=== PATIENT | male | born 1935 | race Caucasian/White ===

== ENCOUNTER → 2017-01-15 | Outpatient (REF) | payer MEDICARE ==
[2017-01-15 10:55] LABS: ALBUMIN 3.7 GM/DL (3.2-5.2); ALBUMIN/GLOBULIN RATIO 1.28 (1.00-1.93); BILIRUBIN,TOTAL 0.9 MG/DL (0.2-1.0); CREATININE FOR GFR 1.63 MG/DL (0.70-1.30); GLOMERULAR FILTRATION RATE 43.2 (>35); MAGNESIUM LEVEL 2.3 MG/DL (1.8-2.4); POTASSIUM SERUM 4.5 MEQ/L (3.5-5.1); TOTAL PROTEIN 6.6 GM/DL (6.4-8.2)
== END ==
LOC: M SFHCPLAZ 08:08
PROVIDERS: ATTEND Internal Medicine
DX: N28.9 Disorder of kidney and ureter, unspecified (principal); E78.00 Pure hypercholesterolemia, unspecified; R25.2 Cramp and spasm

== ENCOUNTER 2017-05-28 09:25 | Emergency (ER) | payer MEDICARE ==
[~2017-05-28] VITALS: Ht 180.3 cm; Wt 92.4 kg
[2017-05-28] MEDS ORDERED: ASPI81TA85 PO (09:39)
[2017-05-28] MEDS ORDERED: CELE1CAP4 PO (09:39)
[2017-05-28] MEDS ORDERED: ATEN25TA PO (09:39)
[2017-05-28] MEDS ORDERED: LIPI20TA PO (09:39)
[2017-05-28] MEDS ORDERED: nitro patch (09:40)
[2017-05-28] MEDS ORDERED: NS 1,000 ML IV ONE (10:00)
[2017-05-28 10:36] LABS: BASO % 0.5 % (0.0-1.0); EOS # 0.2 K/mm3 (0.0-0.50); EOS % 2.6 % (0.0-3.0); LARGE UNSTAINED CELL # 0.2 K/mm3 (0.0-0.4); LYMPH # 1.1 K/mm3 (1.5-4.5); MEAN CORPUSCULAR HEMOGLOBIN 33.7 pg (27.0-33.0); MEAN CORPUSCULAR HGB CONC 36.2 g/dl (32.0-36.5); MEAN CORPUSCULAR VOLUME 93.3 fl (80.0-96.0); MONO # 0.5 K/mm3 (0.0-0.8); MONO % 7.1 % (0.0-5.0); NEUTROPHILS # 5.2 K/mm3 (1.8-7.7); NEUTROPHILS % 71.7 % (36.0-66.0); PLATELET COUNT, AUTOMATED 183 k/mm3 (150-450); RED CELL DISTRIBUTION WIDTH 13.3 % (11.5-14.5); WHITE BLOOD COUNT 7.2 K/mm3 (4.0-10.0)
--- NOTE | 2017-05-28 10:52 | REP ---
CT ABDOMEN AND PELVIS WITHOUT IV CONTRAST: CT abdomen and pelvis performed without oral or IV contrast, with sagittal and coronal reconstruction images also performed. Comparison made with prior CT with and without contrast 05/31/2014. Visualized lungs bases demonstrate linear fibroatelectatic change. Liver demonstrates no gross nodule. Gallbladder is grossly unremarkable. Spleen, adrenals, and pancreas are grossly unremarkable. There are bilateral renal cysts identified. The largest is on the left side and measures approximately 6 cm in diameter. No renal or ureteral calculi are seen and there is no hydroureteronephrosis. Evaluation for renal neoplasm is limited without IV contrast. There are moderate atherosclerotic calcifications of the abdominal aorta without aneurysm. There is no adenopathy. There is no free air or free fluid. No bowel thickening is seen. The appendix is normal. There is sigmoid diverticulosis without acute diverticulitis. Urinary bladder is mildly distended. Internally within the bladder is an ill-defined hyperdensity about 2.5 cm in diameter which may represent a blood clot. I cannot rule out underlying bladder polyp. There is a small right inguinal hernia containing fat. Prostate appears mildly enlarged. There are degenerative changes of the spine. IMPRESSION: Bilateral renal cysts without renal or ureteral calculus and no hydroureteronephrosis noted. Evaluation for renal neuroplasm is limited without IV contrast. Ill-defined hyperdensity in the bladder 2.5 cm in diameter may represent a blood clot. I cannot rule out underlying bladder polyps. Sigmoid diverticulosis. No adenopathy, free air, or free fluid. Signed by Jama Cardenas MD 05/28/2017 01:41 P
[2017-05-28 10:54] LABS: ALBUMIN 3.7 GM/DL (3.2-5.2); ALBUMIN/GLOBULIN RATIO 1.28 (1.00-1.93); BILIRUBIN,DIRECT 0.2 MG/DL (0.0-0.2); BILIRUBIN,TOTAL 0.7 MG/DL (0.2-1.0); CALCIUM LEVEL 8.8 MG/DL (8.8-10.2); CREATININE FOR GFR 1.68 MG/DL (0.70-1.30); GLOMERULAR FILTRATION RATE 41.6 (>35); POTASSIUM SERUM 4.7 MEQ/L (3.5-5.1); TOTAL PROTEIN 6.6 GM/DL (6.4-8.2)
[2017-05-28] MEDS ORDERED: CIPR-249 PO (12:43)
[2017-05-28 12:59] VITALS: BP 158/86
== END 2017-05-28 13:26 | disposition home or self-care (01) ==
LOC: M ED 09:25
DX: N30.91 Cystitis, unspecified with hematuria (principal); I25.10 Atherosclerotic heart disease of native coronary artery without angina pectoris; R00.0 Tachycardia, unspecified; I10 Essential (primary) hypertension; N40.0 Benign prostatic hyperplasia without lower urinary tract symptoms; E78.5 Hyperlipidemia, unspecified; N28.1 Cyst of kidney, acquired; Z79.899 Other long term (current) drug therapy; Z79.82 Long term (current) use of aspirin; Z88.8 Allergy status to other drugs, medicaments and biological substances; Z91.013 Allergy to seafood; Z91.048 Other nonmedicinal substance allergy status; Z87.442 Personal history of urinary calculi; Z96.0 Presence of urogenital implants

== ENCOUNTER → 2017-06-18 | Outpatient (REF) | payer MEDICARE ==
[~2017-06-18] MED LIST: ASPI81TA85 PO; ATEN25TA PO; CELE1CAP4 PO; CIPR-249 PO; LIPI20TA PO; nitro patch
[2017-06-18 12:24] LABS: ALBUMIN 3.5 GM/DL (3.2-5.2); ALBUMIN/GLOBULIN RATIO 1.35 (1.00-1.93); BILIRUBIN,TOTAL 0.8 MG/DL (0.2-1.0); CALCIUM LEVEL 8.5 MG/DL (8.8-10.2); CREATININE FOR GFR 1.66 MG/DL (0.70-1.30); GLOMERULAR FILTRATION RATE 42.2 (>35); MAGNESIUM LEVEL 1.9 MG/DL (1.8-2.4); POTASSIUM SERUM 4.3 MEQ/L (3.5-5.1); TOTAL PROTEIN 6.1 GM/DL (6.4-8.2)
[2017-06-18 12:29] LABS: MEAN CORPUSCULAR HEMOGLOBIN 31.9 pg (27.0-33.0); MEAN CORPUSCULAR VOLUME 96.5 fl (80.0-96.0); RED CELL DISTRIBUTION WIDTH 13.3 % (11.5-14.5); WHITE BLOOD COUNT 7.9 10^3/uL (4.0-10.0)
== END ==
LOC: M SFHCPLAZ 08:07
PROVIDERS: ATTEND Internal Medicine
DX: N28.9 Disorder of kidney and ureter, unspecified (principal); N18.3 Chronic kidney disease, stage 3 (moderate); I25.10 Atherosclerotic heart disease of native coronary artery without angina pectoris; R25.2 Cramp and spasm

== ENCOUNTER → 2018-01-21 | Outpatient (REF) | payer MEDICARE ==
[2018-01-21 12:41] LABS: AMORPHOUS SEDIMENT SMALL (NEGATIVE); APPEARANCE, URINE HAZY (CLEAR); BACTERIA, URINE AUTO NEGATIVE (NEGATIVE); BILIRUBIN, URINE AUTO NEGATIVE (NEGATIVE); BLOOD, URINE BLOOD 2+ (NEGATIVE); COLOR, URINE YELLOW (YELLOW); GLUCOSE, URINE (UA) AUTO NEGATIVE (NEGATIVE); KETONE, URINE AUTO NEGATIVE (NEGATIVE); LEUKOCYTE ESTERASE, URINE AUTO 1+ (NEGATIVE); NITRITE, URINE AUTO NEGATIVE (NEGATIVE); PROTEIN, URINE AUTO NEGATIVE (NEGATIVE); RBC, URINE AUTO 55 /HPF (0-3); SPECIFIC GRAVITY URINE AUTO 1.019 (1.002-1.035); SQUAMOUS EPITHELIAL CELL UR AU 0 /HPF (0-6); WBC, URINE AUTO 58 /HPF (0-3)
[2018-01-21 13:08] LABS: PTH INTACT 71.9 PG/ML (18.5-88.0)
[2018-01-21 13:09] LABS: ALBUMIN 3.8 GM/DL (3.2-5.2); ALBUMIN/GLOBULIN RATIO 1.36 (1.00-1.93); ALKALINE PHOSPHATASE 117 U/L (45-117); ALT/SGPT 42 U/L (12-78); ANION GAP 5 MEQ/L (8-16); AST/SGOT 24 U/L (7-37); BILIRUBIN,TOTAL 0.8 MG/DL (0.2-1.0); BLOOD UREA NITROGEN 25 MG/DL (7-18); CALCIUM LEVEL 8.5 MG/DL (8.8-10.2); CARBON DIOXIDE LEVEL 27 MEQ/L (21-32); CHLORIDE LEVEL 110 MEQ/L (98-107); CHOLESTEROL LEVEL 124 MG/DL (<200); CHOLESTEROL RISK RATIO 3.179 (<5); CREATININE FOR GFR 1.58 MG/DL (0.70-1.30); GLOMERULAR FILTRATION RATE 44.7 (>35); GLUCOSE, FASTING 101 MG/DL (70-100); HDL CHOLESTEROL 39 MG/DL (>40); LDL CHOLESTEROL 56.2 MG/DL (<100); NON-HDL-C 85 MG/DL; POTASSIUM SERUM 4.7 MEQ/L (3.5-5.1); SODIUM LEVEL 142 MEQ/L (136-145); TOTAL PROTEIN 6.6 GM/DL (6.4-8.2); TRIGLYCERIDES LEVEL 144 MG/DL (<150)
[2018-01-21 13:48] LABS: ESTIMATED AVERAGE GLUCOSE 120 MG/DL (60-110); HEMOGLOBIN A1c 5.8 %
== END ==
LOC: M SFHCPLAZ 08:07
DX: N18.3 Chronic kidney disease, stage 3 (moderate) (principal); R73.01 Impaired fasting glucose; E78.00 Pure hypercholesterolemia, unspecified; Z87.448 Personal history of other diseases of urinary system
CPT/HCPCS: 80053

== ENCOUNTER → 2018-03-31 | Outpatient (CLI) | payer MEDICARE ==
[2018-03-31 08:31] LABS: HEMATOCRIT 43.2 % (42.0-52.0); HEMOGLOBIN 14.6 g/dl (13.5-17.5); MEAN CORPUSCULAR HEMOGLOBIN 32.4 pg (27.0-33.0); MEAN CORPUSCULAR HGB CONC 33.8 g/dl (32.0-36.5); MEAN CORPUSCULAR VOLUME 95.8 fl (80.0-96.0); PLATELET COUNT, AUTOMATED 149 10^3/uL (150-450); RED BLOOD COUNT 4.51 10^6/uL (4.30-6.10); RED CELL DISTRIBUTION WIDTH 13.6 % (11.5-14.5); WHITE BLOOD COUNT 6.2 10^3/uL (4.0-10.0)
[2018-03-31 08:44] LABS: INR 1.01; PROTHROMBIN TIME 13.5 SECONDS (12.1-14.4)
[2018-03-31 08:45] LABS: PARTIAL THROMBOPLASTIN TIME 29.8 SECONDS (25.4-37.6)
[2018-03-31 08:51] LABS: ANION GAP 5 MEQ/L (8-16); BLOOD UREA NITROGEN 26 MG/DL (7-18); CALCIUM LEVEL 8.2 MG/DL (8.8-10.2); CARBON DIOXIDE LEVEL 26 MEQ/L (21-32); CHLORIDE LEVEL 110 MEQ/L (98-107); CREATININE FOR GFR 1.85 MG/DL (0.70-1.30); GLOMERULAR FILTRATION RATE 37.3 (>35); GLUCOSE, FASTING 121 MG/DL (70-100); POTASSIUM SERUM 4.3 MEQ/L (3.5-5.1); SODIUM LEVEL 141 MEQ/L (136-145)
== END ==
LOC: M LAB 07:56
DX: Z01.818 Encounter for other preprocedural examination (principal); N32.89 Other specified disorders of bladder
CPT/HCPCS: 71046

== ENCOUNTER 2018-04-17 08:10 | Day surgery (SDC) | payer MEDICARE ==
[2018-04-17] MEDS: LR 1,000 ML IV (08:45)
[2018-04-17] MEDS ORDERED: LIDOCAINE 2% INJ 100 MG/5 ML SDV (FOR ANES.) As Ordered ×2 (09:08)
[2018-04-17] MEDS ORDERED: ONDANSETRON 4MG/2ML VIAL (J2405) As Ordered ×2 (09:09)
[2018-04-17] MEDS ORDERED: MIDAZOLAM INJ 2 MG/2 ML VIAL (J2250) As Ordered (09:09)
[2018-04-17] MEDS ORDERED: PROPOFOL 200 MG/20 ML VIAL As Ordered ×2 (09:09)
[2018-04-17] MEDS ORDERED: fentaNYL 100 MCG/2 ML INJECTION (J3010) As Ordered ×2 (09:10→11:08)
[2018-04-17] MEDS ORDERED: dexameTHASONE 4 MG/ML 1ML VIAL (J1100) As Ordered (10:16)
[2018-04-17] MEDS ORDERED: SUGAMMADEX SODIUM 500 MG/5 ML VIAL (BRIDION) As Ordered (10:51)
[2018-04-17] MEDS: fentaNYL 100 MCG/2 ML INJECTION (J3010) IV ×8 (11:05→11:55)
[2018-04-17] MEDS ORDERED: PERCOCET 5MG/325MG TAB As Ordered (11:08)
[2018-04-17] MEDS: PERCOCET 5MG/325MG TAB PO ×2 (11:15→11:45)
[2018-04-17] MEDS: MEPERIDINE INJ 25 MG/ML VIAL (J2175) IV ×2 (11:25→11:30)
[2018-04-17] MEDS ORDERED: METOCLOPRAMIDE INJ 10MG/2ML VIAL (J2765) IV ×2 (11:30→14:00)
[2018-04-17] MEDS ORDERED: ONDANSETRON 4MG/2ML VIAL (J2405) IV ×2 (11:30→14:00)
[2018-04-17] MEDS ORDERED: LR 1,000 ML IV ×2 (11:30→14:00)
[2018-04-17] MEDS ORDERED: ACETAMINOPHEN TAB 650MG DOSE (2X325MG) PO (11:30)
[2018-04-17] MEDS: oxyBUTYnin 5 MG TAB PO (12:18)
[2018-04-17] MEDS ORDERED: BELLADONNA ALKALOIDS/OPIUM SUPP As Ordered (13:55)
[2018-04-17] MEDS ORDERED: PERCOCET 5MG/325MG TAB PO (14:00)
[2018-04-17] MEDS ORDERED: fentaNYL 100 MCG/2 ML INJECTION (J3010) IV (14:00)
[2018-04-17] MEDS ORDERED: MEPERIDINE INJ 25 MG/ML VIAL (J2175) IV (14:00)
[2018-04-17] MEDS: BELLADONNA ALKALOIDS/OPIUM SUPP PR (14:05)
== END 2018-04-17 14:45 | disposition home or self-care (01) ==
LOC: M SDC 08:10
DX: C67.3 Malignant neoplasm of anterior wall of bladder (principal); I10 Essential (primary) hypertension; I25.10 Atherosclerotic heart disease of native coronary artery without angina pectoris; N40.0 Benign prostatic hyperplasia without lower urinary tract symptoms; E78.00 Pure hypercholesterolemia, unspecified; Z79.82 Long term (current) use of aspirin; Z79.899 Other long term (current) drug therapy
CPT/HCPCS: 52240

== ENCOUNTER → 2018-06-02 | Outpatient (REF) | payer MEDICARE ==
[2018-06-02 10:17] LABS: HEMATOCRIT 45.3 % (42.0-52.0); HEMOGLOBIN 15.4 g/dl (13.5-17.5); MEAN CORPUSCULAR HEMOGLOBIN 32.4 pg (27.0-33.0); MEAN CORPUSCULAR VOLUME 95.2 fl (80.0-96.0); PLATELET COUNT, AUTOMATED 156 10^3/uL (150-450); RED BLOOD COUNT 4.76 10^6/uL (4.30-6.10); RED CELL DISTRIBUTION WIDTH 13.5 % (11.5-14.5); WHITE BLOOD COUNT 6.6 10^3/uL (4.0-10.0)
[2018-06-02 10:35] LABS: ALBUMIN 3.8 GM/DL (3.2-5.2); ALBUMIN/GLOBULIN RATIO 1.65 (1.00-1.93); ALKALINE PHOSPHATASE 108 U/L (45-117); ALT/SGPT 42 U/L (12-78); ANION GAP 9 MEQ/L (8-16); AST/SGOT 24 U/L (7-37); BILIRUBIN,TOTAL 0.6 MG/DL (0.2-1.0); BLOOD UREA NITROGEN 21 MG/DL (7-18); CALCIUM LEVEL 8.8 MG/DL (8.8-10.2); CARBON DIOXIDE LEVEL 25 MEQ/L (21-32); CHLORIDE LEVEL 108 MEQ/L (98-107); CREATININE FOR GFR 1.64 MG/DL (0.70-1.30); GLOMERULAR FILTRATION RATE 42.7 (>35); GLUCOSE, FASTING 86 MG/DL (70-100); POTASSIUM SERUM 4.6 MEQ/L (3.5-5.1); SODIUM LEVEL 142 MEQ/L (136-145); TOTAL PROTEIN 6.1 GM/DL (6.4-8.2)
[2018-06-02 13:29] LABS: TOTAL 25(OH) VITAMIN D 33.4 NG/ML (30.0-100.0)
== END ==
LOC: M SFHCPLAZ 08:02
DX: N18.3 Chronic kidney disease, stage 3 (moderate) (principal); E78.00 Pure hypercholesterolemia, unspecified; E55.9 Vitamin D deficiency, unspecified
CPT/HCPCS: 80053

== ENCOUNTER → 2018-06-30 | Outpatient (REF) | payer MEDICARE | LOC: M SMT 16:56 | DX: C67.9 Malignant neoplasm of bladder, unspecified (principal) | CPT/HCPCS: 88108 ==

== ENCOUNTER → 2019-01-14 | Outpatient (REF) | payer MEDICARE ==
[~2019-01-14] MED LIST changes: +FISH1000 PO; +MULT1TAB10 PO; +NATU400T PO; +VITA100067 PO
[2019-01-14 13:30] LABS: HEMATOCRIT 45.6 % (42.0-52.0); MEAN CORPUSCULAR HEMOGLOBIN 31.8 pg (27.0-33.0); MEAN CORPUSCULAR HGB CONC 32.9 g/dl (32.0-36.5); MEAN CORPUSCULAR VOLUME 96.8 fl (80.0-96.0); PLATELET COUNT, AUTOMATED 133 10^3/uL (150-450); RED BLOOD COUNT 4.71 10^6/uL (4.30-6.10); WHITE BLOOD COUNT 7.9 10^3/uL (4.0-10.0)
[2019-01-14 14:00] LABS: ALBUMIN 3.8 GM/DL (3.2-5.2); BILIRUBIN,TOTAL 0.9 MG/DL (0.2-1.0); CALCIUM LEVEL 8.7 MG/DL (8.8-10.2); CHOLESTEROL RISK RATIO 3.152 (<5); CREATININE FOR GFR 1.66 MG/DL (0.70-1.30); GLOMERULAR FILTRATION RATE 42.1 (>35); POTASSIUM SERUM 4.8 MEQ/L (3.5-5.1); TOTAL PROTEIN 6.2 GM/DL (6.4-8.2)
[2019-01-14 14:04] LABS: PTH INTACT 70.8 PG/ML (18.5-88.0)
[2019-01-14 14:42] LABS: HEMOGLOBIN A1c 5.7 %
== END ==
LOC: M SFHCPLAZ 09:59
PROVIDERS: ATTEND Internal Medicine
DX: N28.9 Disorder of kidney and ureter, unspecified (principal); C67.9 Malignant neoplasm of bladder, unspecified; N18.3 Chronic kidney disease, stage 3 (moderate); R73.01 Impaired fasting glucose; E78.00 Pure hypercholesterolemia, unspecified

== ENCOUNTER → 2019-01-19 | Outpatient (REF) | payer MEDICARE ==
[~2019-01-19] MED LIST changes: +CELE1CAP9; +FLOM0.4C39 PO; +MACR100C43 PO; +MULTCAP PO; +PYRI1TAB5 PO; +QUIN324C2 PO; +TAMS1CAP17; +VITA200028 PO
== END ==
LOC: M SMT 17:24
PROVIDERS: ATTEND Urology
DX: R30.0 Dysuria (principal)

== ENCOUNTER → 2019-02-02 | Outpatient (CLI) | payer MEDICARE ==
--- NOTE | 2019-02-02 10:58 | REP ---
Chest two views HISTORY: Bladder cancer Comparison: 03/31/2018 An increase in interstitial markings is present in the lungs consistent with chronic interstitial fibrosis. The heart is normal in size. The pulmonary vasculature is normal in appearance. The bony structure is intact. IMPRESSION: Chronic interstitial fibrosis. Electronically Signed by Nabor Lawler MD 02/02/2019 10:49 A
--- NOTE | 2019-02-03 09:36 | ECGEPIP ---
[facility] Test Date: 2019-02-02 Pat Name: LAINA PATINO Department: Room: - Gender: Male Clinical Quality Rn: SILVIA : 1935 Requested By: DAO Kincaid Order Number: [id number] Reading MD: Itz Landrum Measurements Intervals [place] Rate: 56 P: PA: 198 QRS: QRSD: 100 T: QT: 417 QTc: 405 Interpretive Statements SINUS BRADYCARDIA, Nonspecific T wave abnormalities. 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 Electronically Signed on 02-03-2019 9:36:29 EDT by Itz Landrum
== END ==
LOC: M EKG 08:11
PROVIDERS: ATTEND Urology
DX: Z01.818 Encounter for other preprocedural examination (principal); C67.9 Malignant neoplasm of bladder, unspecified; J84.112 Idiopathic pulmonary fibrosis; R00.1 Bradycardia, unspecified; I25.2 Old myocardial infarction

== ENCOUNTER 2019-02-10 11:43 | Day surgery (SDC) | payer MEDICARE ==
[~2019-02-10] VITALS: Ht 180.3 cm; Wt 88.5 kg
[~2019-02-10 11:43] MED LIST changes: -CELE1CAP9; +LIDOCAINE 1% MDV 20ML VIAL SQ PRN; +LIDOCAINE 2% INJ 100 MG/5 ML SDV (FOR ANES.) As Ordered ONE; +LR 1,000 ML IV ONE; -MACR100C43 PO; +MIDAZOLAM INJ 2 MG/2 ML VIAL (J2250) As Ordered ONE; +PROPOFOL 200 MG/20 ML VIAL As Ordered ONE; -PYRI1TAB5 PO; +ROCURONIUM BROMIDE 50 MG/5 ML VIAL As Ordered ONE; -TAMS1CAP17; +fentaNYL 250 MCG/5 ML INJECTION (J3010) As Ordered ONE; +mitoMYcin 40MG VIAL (J9280 PER 5MG) INTRAVESIC ONE
[2019-02-10] MEDS ORDERED: SUGAMMADEX SODIUM 500 MG/5 ML VIAL (BRIDION) As Ordered ONE (15:13)
[2019-02-10] MEDS ORDERED: ONDANSETRON 4MG/2ML VIAL (J2405) As Ordered ONE (15:13)
[2019-02-10] MEDS ORDERED: dexameTHASONE 4 MG/ML 1ML VIAL (J1100) As Ordered ONE (15:14)
[2019-02-10] MEDS ORDERED: KETOROLAC 60 MG/2 ML VIAL (J1885) As Ordered ONE (15:14)
[2019-02-10] MEDS ORDERED: PHENYLephrine HCL 500 MCG/5 ML (100MCG/ML) SYRINGE (J2370) As Ordered ONE (15:18)
[2019-02-10] MEDS ORDERED: fentaNYL 100 MCG/2 ML INJECTION (J3010) As Ordered ONE (15:53)
[2019-02-10] MEDS: fentaNYL 100 MCG/2 ML INJECTION (J3010) IV PRN ×4 (15:55→16:24)
--- NOTE | 2019-02-10 15:56 | ROOPDOC ---
[facility] Report Of Operation Report of Operation DATE OF PROCEDURE: 02/10/2019 PREPROCEDURE DIAGNOSIS: Bladder cancer. POSTPROCEDURE DIAGNOSIS: Bladder cancer. PROCEDURE: Cystoscopy, transurethral resection of bladder tumor (greater than 5 cm), intravesical mitomycin C installation, urethral dilation. SURGEON: Dr. Dao Black STEWARD DISHWASHER: None. ANESTHESIA: General. OPERATIVE INDICATIONS: This is an 83-year-old male that had history of low grade bladder cancer who on recent office cystoscopy was found to have a large tumor on his right lateral wall. He was brought to the operating room today for the above listed procedures. DESCRIPTION OF PROCEDURE: The patient was brought to the operating room where general anesthesia was induced. Prophylactic antibiotics were infused. He was then placed in dorsal lithotomy position and prepped and draped in the usual sterile fashion. I attempted to insert a resectoscope into the the urethral meatus using the visual obturator. It would not go as the urethral meatus and pendulous urethra was somewhat narrow. I therefore dilated his pendulous urethra using curved metal sounds. I dilated to 32Fr. The resectoscope was then reinserted and advanced into the bladder using the visual obturator. The bladder was then thoroughly examined. He had an approximately 5-6cm papillary tumor on the right lateral wall. The tumor was then resected using a Gyrus loop. The base of resection was cauterized for good hemostasis. Once done all of the resected tumor was removed using an Ellik evacuator. The bladder was then examined several additional times to ensure that all the visible tumors were removed. Once that was done and I was satisfied with hemostasis, the resectoscope was removed. I then inserted an 18 [place] 3-way catheter and filled the balloon with 30 mL of sterile water. The irrigation port was plugged and at this point 40 mg of mitomycin C was instilled into the bladder and once that was done that port was plugged. This marked the conclusion of the procedure. The patient was then taken out of the dorsal lithotomy position, awakened from anesthesia and transported to the recovery room in stable condition. Estimated blood loss: 5 mL. Complications: None. Specimen: Bladder tumors. Plan: The patient will be keep the mitomycin C in her bladder for about an hour in the recovery room. Once that is done, it will be allowed to drain out. After which, the bladder will be irrigated out with normal saline. He will then go home with the catheter and follow up in the clinic next week for catheter removal and to discuss pathology results. DAO BLACK MD Feb 10, 2019 15:56
[2019-02-10] MEDS ORDERED: oxyCODONE 5MG TAB PO PRN (16:15)
[2019-02-10 18:45] VITALS: BP 162/88
[2019-02-11] MEDS ORDERED: CELE1CAP9 (11:44)
[2019-02-11] MEDS ORDERED: TAMS1CAP17 (11:44)
[2019-02-11] MEDS ORDERED: MACR100C43 PO (15:18)
[2019-02-11] MEDS ORDERED: PYRI1TAB5 PO (15:18)
== END 2019-02-10 18:50 | disposition home or self-care (01) ==
LOC: M SDC 11:43
PROVIDERS: ATTEND Urology
DX: C67.2 Malignant neoplasm of lateral wall of bladder (principal); I25.10 Atherosclerotic heart disease of native coronary artery without angina pectoris; I10 Essential (primary) hypertension; E78.5 Hyperlipidemia, unspecified; J45.909 Unspecified asthma, uncomplicated; N40.0 Benign prostatic hyperplasia without lower urinary tract symptoms; Z88.8 Allergy status to other drugs, medicaments and biological substances; Z91.013 Allergy to seafood; Z88.0 Allergy status to penicillin; Z79.82 Long term (current) use of aspirin; Z79.899 Other long term (current) drug therapy
CPT/HCPCS: 51720; 52240; 88307; J0690; J1100; J1885; J2250; J2370; J2405; J3010

== ENCOUNTER 2019-02-11 11:35 | Emergency (ER) | payer MEDICARE ==
[~2019-02-11] VITALS: Ht 180.3 cm; Wt 91.2 kg
[~2019-02-11 11:35] MED LIST changes: -LIDOCAINE 1% MDV 20ML VIAL SQ PRN; -LIDOCAINE 2% INJ 100 MG/5 ML SDV (FOR ANES.) As Ordered ONE; -LR 1,000 ML IV ONE; -MIDAZOLAM INJ 2 MG/2 ML VIAL (J2250) As Ordered ONE; -PROPOFOL 200 MG/20 ML VIAL As Ordered ONE; -ROCURONIUM BROMIDE 50 MG/5 ML VIAL As Ordered ONE; -fentaNYL 250 MCG/5 ML INJECTION (J3010) As Ordered ONE; -mitoMYcin 40MG VIAL (J9280 PER 5MG) INTRAVESIC ONE
[2019-02-11] MEDS ORDERED: CELE1CAP9 (11:44)
[2019-02-11] MEDS ORDERED: TAMS1CAP17 (11:44)
[2019-02-11] MEDS ORDERED: LIDOCAINE 2% 5ML JELLY UROJET TOP ONE (12:30)
[2019-02-11 13:14] LABS: BASO % 0.2 % (0.0-1.0); EOS % 0.3 % (0.0-3.0); HEMATOCRIT 40.5 % (42.0-52.0); HEMOGLOBIN 13.9 g/dl (13.5-17.5); LYMPH # 0.9 10^3/uL (1.5-4.5); LYMPH % 8.8 % (24.0-44.0); MEAN CORPUSCULAR HEMOGLOBIN 32.1 pg (27.0-33.0); MEAN CORPUSCULAR HGB CONC 34.3 g/dl (32.0-36.5); MEAN CORPUSCULAR VOLUME 93.5 fl (80.0-96.0); NEUTROPHILS # 8.2 10^3/uL (1.8-7.7); NEUTROPHILS % 80.5 % (36.0-66.0); PLATELET COUNT, AUTOMATED 146 10^3/uL (150-450); RED BLOOD COUNT 4.33 10^6/uL (4.30-6.10); WHITE BLOOD COUNT 10.2 10^3/uL (4.0-10.0)
[2019-02-11] MEDS ORDERED: NS 500 ML IV ONE (13:15)
[2019-02-11] MEDS ORDERED: TAMSULOSIN 0.4 MG CAP PO ONE (13:30)
[2019-02-11 13:31] LABS: ALBUMIN 3.2 GM/DL (3.2-5.2); BILIRUBIN,TOTAL 0.6 MG/DL (0.2-1.0); CALCIUM LEVEL 8.3 MG/DL (8.8-10.2); CREATININE FOR GFR 1.93 MG/DL (0.70-1.30); GLOMERULAR FILTRATION RATE 35.4 (>35); TOTAL PROTEIN 5.6 GM/DL (6.4-8.2)
[2019-02-11] MEDS ORDERED: ONDANSETRON 4MG/2ML VIAL (J2405) IV ONE (14:00)
[2019-02-11] MEDS ORDERED: MORPHINE 4 MG/ML 1ML VIAL/SYRINGE (J2270) IV ONE (14:00)
[2019-02-11] MEDS ORDERED: PYRI1TAB5 PO (15:18)
[2019-02-11] MEDS ORDERED: MACR100C43 PO (15:18)
[2019-02-11] MEDS ORDERED: PHENAZOPYRIDINE 100 MG TAB PO ONE (15:30)
[2019-02-11] MEDS ORDERED: NITROFURANTOIN (MACROBID) 100 MG CAP PO ONE (15:30)
[2019-02-11 15:39] VITALS: BP 171/90
== END 2019-02-11 15:41 | disposition home or self-care (01) ==
LOC: M ED 11:35
DX: T83.098A Other mechanical complication of other urinary catheter, initial encounter (principal); G89.18 Other acute postprocedural pain; N39.0 Urinary tract infection, site not specified; E78.00 Pure hypercholesterolemia, unspecified; I10 Essential (primary) hypertension; M54.9 Dorsalgia, unspecified; N42.9 Disorder of prostate, unspecified; Z79.82 Long term (current) use of aspirin; Z79.899 Other long term (current) drug therapy; Z91.013 Allergy to seafood; Z88.0 Allergy status to penicillin; Z88.1 Allergy status to other antibiotic agents; Z91.89 Other specified personal risk factors, not elsewhere classified
CPT/HCPCS: 80053; 81001; 85025; 87086; 96361; 96374; 96375; 99284; J2270; J2405

== ENCOUNTER → 2019-02-26 | Outpatient (REF) | payer MEDICARE ==
[~2019-02-26] MED LIST changes: +CELE1CAP9; +MACR100C43 PO; +PYRI1TAB5 PO; +TAMS1CAP17
[2019-02-26 14:08] LABS: APPEARANCE, URINE CLEAR (CLEAR); BACTERIA, URINE AUTO NEGATIVE (NEGATIVE); BILIRUBIN, URINE AUTO NEGATIVE (NEGATIVE); BLOOD, URINE BLOOD 3+ (NEGATIVE); COLOR, URINE YELLOW (YELLOW); GLUCOSE, URINE (UA) AUTO NEGATIVE (NEGATIVE); KETONE, URINE AUTO NEGATIVE (NEGATIVE); LEUKOCYTE ESTERASE, URINE AUTO 1+ (NEGATIVE); MUCUS, URINE SMALL (NEGATIVE); NITRITE, URINE AUTO NEGATIVE (NEGATIVE); PROTEIN, URINE AUTO NEGATIVE (NEGATIVE); RBC, URINE AUTO 141 /HPF (0-3); SPECIFIC GRAVITY URINE AUTO 1.005 (1.002-1.035); SQUAMOUS EPITHELIAL CELL UR AU 0 /HPF (0-6); UROBILINOGEN, URINE AUTO 0.2 mg/dL (0.0-2.0); WBC, URINE AUTO 22 /HPF (0-3)
== END ==
LOC: M SMT 13:40
PROVIDERS: ATTEND Nurse Practitioner Family
DX: R33.9 Retention of urine, unspecified (principal)
CPT/HCPCS: 51700; 81001; 87088; 87186; G0463

== ENCOUNTER → 2019-06-09 | Outpatient (REF) | payer MEDICARE ==
[2019-06-09 13:12] LABS: ALBUMIN 3.6 GM/DL (3.2-5.2); BILIRUBIN,TOTAL 0.9 MG/DL (0.2-1.0); CALCIUM LEVEL 9.3 MG/DL (8.8-10.2); CREATININE FOR GFR 1.81 MG/DL (0.70-1.30); POTASSIUM SERUM 4.5 MEQ/L (3.5-5.1); PTH INTACT 50.8 PG/ML (18.5-88.0); TOTAL PROTEIN 6.6 GM/DL (6.4-8.2)
== END ==
LOC: M SFHCPLAZ 09:08
PROVIDERS: ATTEND Internal Medicine
DX: N18.3 Chronic kidney disease, stage 3 (moderate) (principal)

== ENCOUNTER → 2019-07-02 | Outpatient (REF) | payer MEDICARE ==
[~2019-07-02] MED LIST changes: +ELIQ5TAB PO; +FINA5TAB2 PO; +LEVA1TAB2 PO; +NITR0.2D5 TD; +SULF1TAB93 PO
== END ==
LOC: M SMT 12:27
PROVIDERS: ATTEND Urology
DX: C67.9 Malignant neoplasm of bladder, unspecified (principal); N39.0 Urinary tract infection, site not specified

== ENCOUNTER 2019-07-03 02:23 | Inpatient (IN) | payer MEDICARE ==
[~2019-07-03] VITALS: Ht 182.9 cm; Wt 191.0 kg
[~2019-07-03 02:23] MED LIST changes: -ELIQ5TAB PO; -FINA5TAB2 PO; -LEVA1TAB2 PO; -NITR0.2D5 TD; -SULF1TAB93 PO
[2019-07-03] MEDS ORDERED: FINA5TAB2 PO (03:08)
[2019-07-03] MEDS ORDERED: SULF1TAB93 PO (03:08)
[2019-07-03 03:39] LABS: BASO # 0.1 10^3/uL (0.0-0.2); BASO % 0.5 % (0.0-1.0); EOS # 0.2 10^3/uL (0.0-0.5); EOS % 1.8 % (0.0-3.0); HEMATOCRIT 37.9 % (42.0-52.0); HEMOGLOBIN 12.7 g/dl (13.5-17.5); LYMPH # 0.6 10^3/uL (1.5-5.0); LYMPH % 6.2 % (24.0-44.0); MEAN CORPUSCULAR HEMOGLOBIN 32.6 pg (27.0-33.0); MEAN CORPUSCULAR HGB CONC 33.5 g/dl (32.0-36.5); MEAN CORPUSCULAR VOLUME 97.4 fl (80.0-96.0); MONO % 9.8 % (0.0-5.0); NEUTROPHILS # 8.4 10^3/uL (1.5-8.5); NEUTROPHILS % 81.3 % (36.0-66.0); PLATELET COUNT, AUTOMATED 136 10^3/uL (150-450); RED BLOOD COUNT 3.89 10^6/uL (4.30-6.10); WHITE BLOOD COUNT 10.3 10^3/uL (4.0-10.0)
[2019-07-03 04:07] LABS: ALT/SGPT 42 U/L (12-78); BILIRUBIN,DIRECT 0.7 MG/DL (0.0-0.2); BILIRUBIN,TOTAL 1.6 MG/DL (0.2-1.0); BLOOD UREA NITROGEN 25 MG/DL (7-18); CALCIUM LEVEL 7.9 MG/DL (8.8-10.2); CARBON DIOXIDE LEVEL 24 MEQ/L (21-32); CHLORIDE LEVEL 108 MEQ/L (98-107); CK-MB VALUE MASS 1.7 NG/ML (<3.6); CPK CREATINE PHOSPHOKINASE 114 U/L (39-308); CREATININE FOR GFR 1.78 MG/DL (0.70-1.30); GLOMERULAR FILTRATION RATE 38.8 (>35); GLUCOSE, FASTING 123 MG/DL (70-100); LIPASE 80 U/L (73-393); MB/CK RELATIVE INDEX 1.49 (< OR =4); POTASSIUM SERUM 4.4 MEQ/L (3.5-5.1); SODIUM LEVEL 140 MEQ/L (136-145); TOTAL PROTEIN 5.6 GM/DL (6.4-8.2); TROPONIN I < 0.02 NG/ML (< 0.10)
[2019-07-03] MEDS ORDERED: MORPHINE 4 MG/ML 1ML VIAL/SYRINGE (J2270) IV ONE ×2 (04:15→05:45)
[2019-07-03] MEDS ORDERED: NS 1,000 ML IV ONE (04:15)
[2019-07-03 04:57] LABS: ABG BASE EXCESS -2.7 (-2.0-2.0); ABG HCO3 21.3 MEQ/L (22.0-26.0); ABG O2 SATURATION 97.9 % (95.0-99.0); ABG PARTIAL PRESSURE CO2 34.9 mmHg (35.0-45.0); ABG STANDARD HCO3 22.2 MEQ/L (22.0-26.0); ABG TOTAL CO2 22.4 MEQ/L (23.0-31.0); ABG pH (ARTERIAL) 7.404 UNITS (7.350-7.450)
--- NOTE | 2019-07-03 05:04 | REPVR ---
PROCEDURE INFORMATION: Exam: CT Chest Without Contrast Exam date and time: 07/03/2019 4:26 AM Clinical history: 84 years old, male; Left-sided chest pain; Additional info: Pain/creat. High TECHNIQUE: Imaging protocol: Computed tomography of the chest without contrast. Radiation optimization: All CT scans at this facility use at least one of these dose optimization techniques: automated exposure control; mA and/or kV adjustment per patient size (includes targeted exams where dose is matched to clinical indication); or iterative reconstruction. COMPARISON: CT ANGIO CHEST 06/20/2017 3:26 PM FINDINGS: Lungs: Lung volumes are relatively shallow bilaterally with elevation of the right diaphragm in particular, similar to the prior exam. There is crowding of bronchovascular structures and a small amount of platelike consolidation and groundglass opacity in both lower lobes, which appears similar to the prior exam. Pleural space: No pleural effusions or pneumothorax are seen. Heart: There is mild cardiomegaly. There is moderate atherosclerotic calcification of the coronary arteries. Aorta: The aorta demonstrates moderate atherosclerotic calcification. Lymph nodes: No lymphadenopathy is seen. Bones/joints: No suspicious osseous lesions. No acute fractures or dislocations. Soft tissues: The soft tissues appear unremarkable. IMPRESSION: 1. Low lung volumes and elevation of the right diaphragm, similar to the prior exam. 2. Volume loss, small amount of consolidation and ground glass opacity in both lower lobes, similar to the prior exam, and most consistent with atelectasis. Superimposed infection/inflammation would be difficult to exclude. Electronically signed by: Roselyn Holman On 07/03/2019 05:03:30 AM
[2019-07-03] MEDS ORDERED: cefTRIAXone SOD 1 GM in D5W MINI-BAG PLUS 50 ML IV ONE (05:15)
[2019-07-03] MEDS ORDERED: MORPHINE 2 MG/ML 1ML VIAL (J2270) IV ONE (05:15)
--- NOTE | 2019-07-03 05:15 | REPVR ---
PROCEDURE INFORMATION: Exam: CT Abdomen And Pelvis Without Contrast Exam date and time: 07/03/2019 4:26 AM Clinical history: 84 years old, male; Abdominal pain; Localized; Left; Additional info: Pain/creat. High TECHNIQUE: Imaging protocol: Computed tomography of the abdomen and pelvis without contrast. Radiation optimization: All CT scans at this facility use at least one of these dose optimization techniques: automated exposure control; mA and/or kV adjustment per patient size (includes targeted exams where dose is matched to clinical indication); or iterative reconstruction. COMPARISON: CT ABD PELVIS W/O CONTRAST 05/28/2017 9:59 AM FINDINGS: Liver: The unenhanced liver appears unremarkable. Gallbladder and bile ducts: The gallbladder appears partially contracted. No stones are identified. No biliary ductal dilation is seen. Pancreas: The pancreas appears unremarkable. No pancreatic ductal dilation identified. Spleen: The unenhanced spleen appears unremarkable. Adrenals: The adrenal glands are normal. Kidneys and ureters: There is no hydronephrosis. The left ureter appears normal. There is fullness of the right ureter throughout its length to the bladder. No stones are identified. There is a left kidney lower pole parapelvic cyst which appears simple, measuring 6.2 cm compared to 5.9 cm previously. There is a 2.1 cm left kidney upper pole cyst which appears simple, measuring 2.1 cm compared to 1.7 cm previously. Small cysts are again seen in the right kidney. No followup needed. Stomach and bowel: Mild diverticulosis is present in the sigmoid and descending colon. There is no dilation or thickening of the colon. The small bowel appears unremarkable. Appendix: A normal appendix is identified. Intraperitoneal space: There is no free intraperitoneal air. Vasculature: The visualized vasculature demonstrates moderate atherosclerotic disease. Lymph nodes: No lymphadenopathy is seen. Bladder: There is mild bladder wall thickening consistent with incomplete distension, chronic outflow obstruction, and/or cystitis. There is intraluminal gas within the bladder, presumably from recent instrumentation. Please correlate clinically. Reproductive: The prostate gland demonstrates moderate nonspecific enlargement. The seminal vesicles are unremarkable. Bones/joints: Degenerative endplate changes are seen at multiple levels in the visualized spine. Soft tissues: Elevation of the right diaphragm is again noted. There is a small periumbilical hernia containing fat. IMPRESSION: 1. Mild thickening of the bladder wall, which may be related to acute or chronic cystitis or chronic outlet obstruction. Intraluminal air in the bladder, presumably from recent instrumentation. Please correlate clinically. 2. Moderate enlargement of the prostate. 3. Fullness of the right ureter throughout its length, larger in caliber than on the prior exam, but no significant hydronephrosis at the level of the right kidney. No stones identified. Consider urinary tract infection or recently passed stone. 4. Diverticulosis without evidence of acute diverticulitis. COMMENT: Consistent with the [employer]'s Incidental Findings Committee Report (J Am Fanta Radiol 2010): Unless the patient's specific circumstances suggest otherwise, any liver lesion 0.5 cm or less, any cystic kidney lesion less than 1.0 cm, and/or any adrenal lesion 1.0 cm or less not otherwise characterized in this report as possessing suspicious or indeterminate imaging features is/are highly likely to be benign and do not require follow-up imaging or biopsy. Electronically signed by: Roselyn Holman On 07/03/2019 05:15:21 AM
[2019-07-03] MEDS ORDERED: ACETAMINOPHEN TAB 650MG DOSE (2X325MG) PO PRN (05:30)
--- NOTE | 2019-07-03 05:30 | HPEPDOC ---
[facility] Medical History & Physical Date of Admission Jul 03, 2019 Date of Service: Jul 03, 2019 Primary Care Physician: Bobby Cruz Attending Physician: EBONY CORNEJO MD History and Physical TIME OF SERVICE: 5:50 PM CHIEF COMPLAINT: Pain HISTORY OF PRESENT ILLNESS: This is a 84-year-old male who presented with complaints of left flank pain for 3 days, that is 8/10 in severity and radiates to his back. The pain is made worse by breathing and and improves by staying still. He came in today because he is unable to exert himself because this causes him to take deep breaths makes the pain worse. He denies having fevers, denies having chills, denies having nausea, denies having vomiting, and denies falling. He has a chronic cough. About 1 month ago he had worsening swelling of the left lower extremity. He was recently started on Bactrim. He received ceftriaxone, IV fluids and morphine, and the emergency department, but continues to have pain. 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 CKD 3 Prediabetes. A1c 5.7 in January 2019 History of Vitamin D deficiency. Osteoarthritis Status post right inguinal hernia repair. Status post tonsillectomy. Status post lumbar laminectomy status post bilateral cataract surgery Test was resection of adenomatous polyp SOCIAL HISTORY: Quit smoking in 1963 He denies traveling recently FAMILY HISTORY: Coronary artery disease Alzheimer's Congestive heart failure ALLERGIES: Please see below. HOME MEDICATIONS: Please see below. PHYSICAL EXAMINATION: VITAL SIGNS: Please see below. GENERAL APPEARANCE: , well-nourished, well-developed, appears to be in pain, appears stated age HEENT: normocephalic, atraumatic, mucous membranes moist and pink CARDIOVASCULAR: regular rate and rhythm. No murmurs, rubs or gallops LUNGS: clear to auscultation bilaterally on room air ABDOMEN: , soft, tender with light palpation of the left mid abdomen and left flank MUSCULOSKELETAL: Range of motion intact in all 4 extremities, he has chronic left lower extremity swelling NEUROLOGICAL:Cranial nerves II-12 are grossly intact. Speech is not dysarthric PSYCHIATRIC: alert and oriented to person, place and time, able to understand and follow commands LABORATORY DATA: See below. IMAGING: Chest x-ray appears unremarkable but the final read is pending CT of the chest " IMPRESSION: 1. Low lung volumes and elevation of the right diaphragm, similar to the prior exam. 2. Volume loss, small amount of consolidation and ground glass opacity in both lower lobes, similar to the prior exam, and most consistent with atelectasis. Superimposed infection/inflammation would be difficult to exclude. " CT of abdomen and pelvis " IMPRESSION: 1. Mild thickening of the bladder wall, which may be related to acute or chronic cystitis or chronic outlet obstruction. Intraluminal air in the bladder, presumably from recent instrumentation. Please correlate clinically. 2. Moderate enlargement of the prostate. 3. Fullness of the right ureter throughout its length, larger in caliber than on the prior exam, but no significant hydronephrosis at the level of the right kidney. No stones identified. Consider urinary tract infection or recently passed stone. 4. Diverticulosis without evidence of acute diverticulitis. MICROBIOLOGY: Please see below. ASSESSMENT: Mr. Avila is an 84-year-old male with past medical history of bladder cancer, chronic CAD, dyslipidemia, CKD 3, prediabetes, and osteoarthritis who will be admitted for management of left flank pain possibly due to pyelonephritis. PLAN: 1. Left flank and abdominal pain possibly secondary to pyelonephritis UA and CT scan findings seem to point towards a diagnosis of cystitis/pyelonephritis He received ceftriaxone in the ED Plan: Admit to general medical floor/IV fluids/Tylenol and tramadol for pain/switch to by mouth Levaquin tomorrow pending urine culture results 2. Elevated d-dimer Greater than 4000 The patient reports having worsening lower extremity swelling. About a month ago He is unable to get CT of the chest with contrast because of his low GFR and elevated creatinine Plan : Follow-up bilateral lower extremity ultrasounds. If they're negative, he'll need a VQ scan 3. Normocytic, chronic anemia Plan: Follow up CBC / monitor for bleeding 4. CKD 3 Renal function is at baseline Plan : BMP 5. Chronic CAD. Plan: Resume home meds 6.History of bladder cancer. Plan: Follow-up with urologist as scheduled DVT prophylaxis with Lovenox Disposition pending clinical course LATE ENTRY 700AM #DVT Per d/w Radiologist from [facility] for clots therefore the patient likely has PE; will switch from prophylaxis to treatment dose lovenox Vital Signs Vital Signs Date Time Temp Pulse Resp B/P (MAP) Pulse Ox O2 Delivery O2 Flow Rate FiO2 07/03/19 04:50 16 07/03/19 04:35 68 173/81 (111) 95 Room Air 07/03/19 02:23 97.5 Laboratory Data Labs 24H Laboratory Tests 2 07/03/19 03:23: Immature Granulocyte % (Auto) 0.4, Neutrophils (%) (Auto) 81.3H, Lymphocytes (%) (Auto) 6.2L, Monocytes (%) (Auto) 9.8H, Eosinophils (%) (Auto) 1.8, Basophils (%) (Auto) 0.5, Neutrophils # (Auto) 8.4, Lymphocytes # (Auto) 0.6L, Monocytes # (Auto) 1.0H, Eosinophils # (Auto) 0.2, Basophils # (Auto) 0.1, Nucleated Red Blood Cells % (auto) 0.0, D-Dimer, Quantitative 3107.21H, Urine Color DIGNA, Urine Appearance TURBIDH, Urine pH 5.0, Urine Specific [place] 1.015, Urine Protein 2+H, Urine Glucose (UA) NEGATIVE, Urine Ketones NEGATIVE, Urine Blood 2+H, Urine Nitrite NEGATIVE, Urine Bilirubin NEGATIVE, Urine Urobilinogen 2.0H, Urine Leukocyte Esterase 3+H, Urine WBC (Auto) TNTCH, Urine RBC (Auto) 85H, Urine Hyaline Casts (Auto) 0, Urine Bacteria (Auto) 1+H, Urine Squamous Epithelial Cells 1, Urine Mucus (Auto) SMALL, Urine Sperm (Auto) , Anion Gap 8, Glomerular Filtration Rate 38.8, Lactic Acid Level 0.9, Calcium Level 7.9L, Total Bilirubin 1.6H, Direct Bilirubin 0.7H, Aspartate Amino Transf (AST/SGOT) 24, Alanine Aminotransferase (ALT/SGPT) 42, Alkaline Phosphatase 107, Total Creatine Kinase 114, Creatine Kinase MB 1.7, Creatine Kinase MB Relative Index 1.49, Troponin I < 0.02, Total Protein 5.6L, Albumin 3.0L, Albumin/Globulin Ratio 1.15, Lipase 80 07/03/19 04:50: Blood Gas Bicarbonate Standard 22.2, Arterial Blood pH 7.404, Arterial Blood Partial Pressure CO2 34.9L, Arterial Blood Partial Pressure O2 105.0H, Arterial Blood Total CO2 22.4L, Arterial Blood HCO3 21.3L, Arterial Blood Base Excess - 2.7L, Arterial Blood Oxygen Saturation 97.9 CBC/BMP Laboratory Tests 07/03/19 03:23 Microbiology Microbiology 07/03/19 Urine Culture, Received Pending Home Medications Scheduled Aspirin (Aspir 81) 81 Mg Tab, 81 MG PO DAILY Atenolol (Atenolol) 25 Mg Tab, 25 MG PO DAILY Atorvastatin Calcium (Lipitor) 20 Mg Tab, 20 MG PO DAILY Celecoxib (Celebrex) 200 Mg Cap, 200 MG PO Q2D Ergocalciferol (Vitamin D2) (Vitamin D2) 2,000 Unit Tablet, 2,000 UNIT PO Q2D Finasteride (Finasteride) 5 Mg Tablet, 5 MG PO DAILY Multivitamin (Multivitamins) 1 Each Capsule, 1 CAP PO DAILY Nitroglycerin (Nitroglycerin Patch) 0.2 Mg/Hr Patch.td24, 0.2 MG TD DAILY [place]-3 Fatty Acids/Fish Oil (Fish Oil 1,000 mg Capsule) 1,000 Mg Cap, 1,000 MG PO DAILY Quinine Sulfate (Quinine Sulfate) 324 Mg Capsule, 324 MG PO BID Sulfamethoxazole/Trimethoprim (Sulfamethoxazole-Tmp Ds Tablet) 1 Each Tablet, 1 TAB PO BID Tamsulosin HCl (Flomax) 0.4 Mg Capsule, 0.4 MG PO QHS Allergies Coded Allergies: cyclobenzaprine (Verified Allergy, Unknown, lip swelling, 07/03/19) iodine (Verified Allergy, Unknown, rash, 07/03/19) metaxalone (Verified Allergy, Unknown, lip swelling, 07/03/19) methocarbamol (Verified Allergy, Unknown, lip swelling, 07/03/19) Shrimp (Verified Adverse Reaction, Mild, vomiting, 07/03/19) amoxicillin (Verified Adverse Reaction, Mild, loss of appetite, 07/03/19) A-FIB/CHADSVASC A-FIB History Current/History of A-Fib/PAF?: No Current PO Anticoag Therapy: EBONY Downey MD Jul 03, 2019 05:30
[2019-07-03] MEDS ORDERED: NITR0.2D5 TD (05:39)
[2019-07-03] MEDS: NS 1,000 ML IV SCH ×2 (06:46→20:01)
--- NOTE | 2019-07-03 06:54 | REPVR ---
PROCEDURE INFORMATION: Exam: US Duplex Lower Extremity Veins Exam date and time: 07/03/2019 6:41 AM Clinical history: 84 years old, male; Edema, localized; Lower extremity, bilateral; Additional info: R/O dvt TECHNIQUE: Imaging protocol: Real-time duplex ultrasound of the Lower Extremities with 2-D lee scale, color Doppler flow and spectral waveform analysis with image documentation. Complete exam focused on the bilateral lower extremity veins. COMPARISON: No relevant prior studies available. FINDINGS: Right deep veins: The right common femoral and superficial femoral veins are patent and compressible with normal phasic venous waveforms and augmentation. There is echogenic, nearly occlusive thrombus in the right popliteal vein. Right superficial veins: The right saphenofemoral junction is patent. Left deep veins: The left common femoral and superficial femoral veins are patent and compressible with normal phasic venous waveforms and augmentation. There is incompletely occlusive echogenic thrombus in the left popliteal vein and at the visualized proximal left posterior tibial vein. Left superficial veins: The left saphenofemoral junction is patent. Soft tissues: Unremarkable. IMPRESSION: Deep venous thrombosis in the bilateral popliteal veins, which is nonocclusive in the left popliteal vein and nearly occlusive in the right popliteal vein. Electronically signed by: Roselyn Holman On 07/03/2019 06:53:33 AM
[2019-07-03 08:13] VITALS: BP 104/52
[2019-07-03] MEDS ORDERED: traMADol ER 100MG TABLET (ULTRAM ER) PO SCH (09:00)
[2019-07-03] MEDS ORDERED: ENOXAPARIN 40 MG/0.4 ML SYRINGE (J1650) SC SCH (09:00)
[2019-07-03] MEDS ORDERED: traMADol 50 MG TAB PO PRN (09:15)
[2019-07-03] MEDS: ATORVASTATIN 20 MG TAB PO SCH (09:22)
[2019-07-03] MEDS: ASPIRIN 81 MG ENTERIC TAB PO SCH (09:23)
[2019-07-03] MEDS: FINASTERIDE 5 MG TAB PO SCH (09:23)
[2019-07-03] MEDS: CelecoXIB (CeleBREX) 100 MG CAP PO SCH (09:23)
[2019-07-03] MEDS: ENOXAPARIN 100MG/1ML SYRINGE (J1650) SC SCH ×2 (09:23→19:59)
[2019-07-03] MEDS: PERCOCET 5MG/325MG TAB PO PRN ×3 (09:24→20:00)
[2019-07-03] MEDS: NITROGLYCERIN 0.2 MG/HR PATCH TD SCH (09:28)
[2019-07-03] MEDS: ATENOLOL 25 MG TAB PO SCH (09:28)
[2019-07-03 10:00] VITALS: BP 122/65
[2019-07-03] MEDS: quiNINE SULFATE 324 MG CAP (QUALAQUIN) PO SCH ×2 (10:00→19:59)
--- NOTE | 2019-07-03 10:04 | IPNPDOC ---
Date Seen The patient was seen on 07/03/19. Progress Note SUBJECTIVE: Patient reports feeling relatively the same, possibly slightly better than on admission although only been hours ago. Tenderness/soreness at multiple sites in LUQ, L. posterior CVA at this time. LE dopplers + DVT b/l Afebrile overnight. OBJECTIVE PHYSICAL EXAMINATION: VITAL SIGNS: Please see below. General: Mild to moderate distress, Alert Eyes: Normal sclera, EOMI HENT: Atraumatic Cardiovascular: Normal rate, normal rhythm. Pulmonary: Clear to auscultation b/l, no wheezing GI: Soft, LUQ and L. CVA tenderness Skin: Warm and dry Neuro: CN grossly intact. No focal deficits. Psych: oriented x 3 LABORATORY DATA, IMAGING STUDIES, MICROBIOLOGY: Please see below. DVT prophylaxis ordered?: On Lovenox therapeutic dose ASSESSMENT AND PLAN: 1. Suspect Pyelonephritis - L. CVA tenderness along with reported pustular appearance on cystoscopy along with CT abdomen findings suggestive of infectious etiology. - f/u urine culture. - c/w Rocephin. Pain control. 2. DVT - b/l DVT noted on LE doppler. - c/w Lovenox therapeutic dose at this time. - Patient unable to undergo CT scan with contrast due to impaired kidney function, will cover for PE as well. 3. Suspect PE - multiple nonspecific chest/abdomen discomfort sites. - Unable to perform CT w/ contrast due to kidney function. - + DVT, on therapeutic Lovenox dose will also treat for PE. - V/Q scan can be performed on Friday can be perform for definitely diagnosis but will not change treatment. - Monitor saturation and respiration. Troponin negative. 4. CKD 3 - Monitor. - Avoid nephrotoxic agents when possible. 5. hx bladder cancer - outpatient f/u. Code status: FULL CODE VS, I&O, 24H, Fishbone Vital Signs/I&O Vital Signs Date Time Temp Pulse Resp B/P (MAP) Pulse Ox O2 Delivery O2 Flow Rate FiO2 07/03/19 09:28 126/72 07/03/19 09:28 68 07/03/19 09:24 20 Room Air 07/03/19 08:13 98.4 94 I&O- Last 24 Hours up to 6 AM 07/03/19 06:00 Intake Total 1000 ml Balance 1000 ml Laboratory Data 24H LABS Laboratory Tests 2 07/03/19 03:23: Immature Granulocyte % (Auto) 0.4, Neutrophils (%) (Auto) 81.3H, Lymphocytes (%) (Auto) 6.2L, Monocytes (%) (Auto) 9.8H, Eosinophils (%) (Auto) 1.8, Basophils (%) (Auto) 0.5, Neutrophils # (Auto) 8.4, Lymphocytes # (Auto) 0.6L, Monocytes # (Auto) 1.0H, Eosinophils # (Auto) 0.2, Basophils # (Auto) 0.1, Nucleated Red Blood Cells % (auto) 0.0, D-Dimer, Quantitative 3107.21H, Urine Color DIGNA, Urine Appearance TURBIDH, Urine pH 5.0, Urine Specific Holt 1.015, Urine Protein 2+H, Urine Glucose (UA) NEGATIVE, Urine Ketones NEGATIVE, Urine Blood 2+H, Urine Nitrite NEGATIVE, Urine Bilirubin NEGATIVE, Urine Urobilinogen 2.0H, Urine Leukocyte Esterase 3+H, Urine WBC (Auto) TNTCH, Urine RBC (Auto) 85H, Urine Hyaline Casts (Auto) 0, Urine Bacteria (Auto) 1+H, Urine Squamous Epithelial Cells 1, Urine Mucus (Auto) SMALL, Urine Sperm (Auto) , Anion Gap 8, Glomerular Filtration Rate 38.8, Lactic Acid Level 0.9, Calcium Level 7.9L, Total Bilirubin 1.6H, Direct Bilirubin 0.7H, Aspartate Amino Transf (AST/SGOT) 24, Alanine Aminotransferase (ALT/SGPT) 42, Alkaline Phosphatase 107, Total Creatine Kinase 114, Creatine Kinase MB 1.7, Creatine Kinase MB Relative Index 1.49, Troponin I < 0.02, Total Protein 5.6L, Albumin 3.0L, Albumin/Globulin Ratio 1.15, Lipase 80 07/03/19 04:50: Blood Gas Bicarbonate Standard 22.2, Arterial Blood pH 7.404, Arterial Blood Partial Pressure CO2 34.9L, Arterial Blood Partial Pressure O2 105.0H, Arterial Blood Total CO2 22.4L, Arterial Blood HCO3 21.3L, Arterial Blood Base Excess - 2.7L, Arterial Blood Oxygen Saturation 97.9 CBC/BMP Laboratory Tests 07/03/19 03:23 Microbiology Microbiology 07/03/19 Urine Culture, Received Pending SARAH MCNULTY MD Jul 03, 2019 10:04
--- NOTE | 2019-07-03 10:18 | REP ---
CHEST, TWO VIEWS: Two views of the chest are performed. Comparison 02/02/2019. There is mild streaky bibasilar atelectasis/infiltrate. Heart is not significantly enlarged. There is calcification and tortuosity of the thoracic aorta. The mediastinal silhouette is otherwise unremarkable. IMPRESSION: Mild bibasilar atelectasis/infiltrate. Electronically Signed by Jama Cardenas MD 07/03/2019 04:51 P
[2019-07-03 14:00] VITALS: BP 125/60
--- NOTE | 2019-07-03 14:07 | ECGEPIP ---
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
[2019-07-03] MEDS: **NOTE PATIENT COMMENT** MISC XX SCH (14:59)
[2019-07-03 18:00] VITALS: BP 121/74
[2019-07-03] MEDS: TAMSULOSIN 0.4 MG CAP PO SCH (19:59)
[2019-07-03 22:00] VITALS: BP 152/81
[2019-07-04] MEDS: NS 1,000 ML IV SCH (01:11)
[2019-07-04] MEDS: PERCOCET 5MG/325MG TAB PO PRN ×4 (01:12→18:13)
[2019-07-04 02:00] VITALS: BP 141/78
[2019-07-04 06:00] VITALS: BP 143/75
[2019-07-04] MEDS ORDERED: cefTRIAXone SOD 1 GM VIAL (J0696) IM SCH (06:00)
[2019-07-04 06:19] LABS: HEMATOCRIT 34.9 % (42.0-52.0); HEMOGLOBIN 11.4 g/dl (13.5-17.5); MEAN CORPUSCULAR HEMOGLOBIN 32.5 pg (27.0-33.0); MEAN CORPUSCULAR HGB CONC 32.7 g/dl (32.0-36.5); MEAN CORPUSCULAR VOLUME 99.4 fl (80.0-96.0); PLATELET COUNT, AUTOMATED 127 10^3/uL (150-450); RED BLOOD COUNT 3.51 10^6/uL (4.30-6.10); WHITE BLOOD COUNT 7.2 10^3/uL (4.0-10.0)
[2019-07-04 06:46] LABS: ALBUMIN 2.6 GM/DL (3.2-5.2); BILIRUBIN,TOTAL 1.3 MG/DL (0.2-1.0); CALCIUM LEVEL 7.9 MG/DL (8.8-10.2); CREATININE FOR GFR 1.6 MG/DL (0.70-1.30); GLOMERULAR FILTRATION RATE 43.8 (>35); POTASSIUM SERUM 4.4 MEQ/L (3.5-5.1); TOTAL PROTEIN 5.6 GM/DL (6.4-8.2)
[2019-07-04] MEDS: cefTRIAXone SOD 1 GM in D5W MINI-BAG PLUS 50 ML IV SCH (06:48)
[2019-07-04] MEDS: NITROGLYCERIN 0.2 MG/HR PATCH TD SCH ×2 (08:56→09:00)
[2019-07-04] MEDS: ENOXAPARIN 100MG/1ML SYRINGE (J1650) SC SCH ×2 (08:56→19:36)
[2019-07-04] MEDS: ATENOLOL 25 MG TAB PO SCH (08:57)
[2019-07-04] MEDS: ATORVASTATIN 20 MG TAB PO SCH (08:57)
[2019-07-04] MEDS: FINASTERIDE 5 MG TAB PO SCH (08:57)
[2019-07-04] MEDS: quiNINE SULFATE 324 MG CAP (QUALAQUIN) PO SCH ×2 (08:57→20:07)
[2019-07-04] MEDS: ASPIRIN 81 MG ENTERIC TAB PO SCH (08:57)
[2019-07-04] MEDS ORDERED: LevoFLOXacin 250 MG TABLET PO SCH (09:00)
[2019-07-04 10:00] VITALS: BP 147/79
[2019-07-04] MEDS ORDERED: ONDANSETRON 4MG/2ML VIAL (J2405) IV PRN (11:30)
[2019-07-04 14:00] VITALS: BP 150/81
--- NOTE | 2019-07-04 14:45 | IPNPDOC ---
Date Seen The patient was seen on 07/04/19. Progress Note SUBJECTIVE: 84-year-old male with past medical history of bladder cancer and chronic kidney disease, was admitted for DVT and UTI. Patient presented with pleuritic left-sided chest pain, found to have bilateral popliteal DVTs in the ED. Patient unable to have CTA of the chest due to chronic kidney disease, currently being treated with full dose Lovenox. Patient continues to have pleuritic chest pain with deep inspiration. Patient has no other complaints, denies shortness of breath, vomiting, abdominal pain or diarrhea. 10 point review of system was negative except for above PHYSICAL EXAMINATION: VITAL SIGNS: Please see below. GENERAL: No distress HEENT: Normocephalic, atraumatic, moist mucous membranes NECK: Supple CARDIOVASCULAR EXAMINATION: S1, S2, no murmurs RESPIRATORY EXAMINATION: Clear to auscultation, no wheezing ABDOMINAL EXAMINATION: Soft, nontender, nondistended, positive bowel sounds EXTREMITIES: Range of motion intact SKIN: No rash NEUROLOGICAL EXAMINATION: Alert and oriented 3, no focal deficits PSYCHIATRIC EXAMINATION: Calm and cooperative LABORATORY DATA, IMAGING STUDIES, MICROBIOLOGY: Please see below. DVT prophylaxis ordered?: No ASSESSMENT AND PLAN: 84-year-old male with history of bladder cancer and chronic kidney disease admitted for DVT and UTI. PROBLEMS: 1. DVT: Bilateral popliteal DVTs, unable to perform CTA due to poor renal function, continue Lovenox. 2. UTI: Symptoms and UA concerning, continue ceftriaxone, urine cultures pending. 3. Bladder cancer:, Status post surgical removal, continue Flomax and finasteride. 4. Chronic kidney disease:. Creatinine at baseline, will monitor. DVT prophylaxis: On full dose Lovenox. GI prophylaxis: Not needed VS, I&O, 24H, Fishbone Vital Signs/I&O Vital Signs Date Time Temp Pulse Resp B/P (MAP) Pulse Ox O2 Delivery O2 Flow Rate FiO2 07/04/19 11:57 16 Room Air 07/04/19 10:00 98.0 70 147/79 (101) 94 I&O- Last 24 Hours up to 6 AM 07/04/19 05:59 Intake Total 1780 ml Output Total 740 ml Balance 1040 ml Laboratory Data 24H LABS Laboratory Tests 2 07/04/19 06:03: Nucleated Red Blood Cells % (auto) 0.0, Anion Gap 5L, Glomerular Filtration Rate 43.8, Calcium Level 7.9L, Total Bilirubin 1.3H, Aspartate Amino Transf (AST/ SGOT) 18, Alanine Aminotransferase (ALT/SGPT) 35, Alkaline Phosphatase 102, Total Protein 5.6L, Albumin 2.6L, Albumin/Globulin Ratio 0.87L CBC/BMP Laboratory Tests 07/04/19 06:03 Microbiology Microbiology 07/03/19 Urine Culture, Received Pending NAHUM JAIME MD Jul 04, 2019 14:45
[2019-07-04 18:00] VITALS: BP 149/79
[2019-07-04] MEDS: TAMSULOSIN 0.4 MG CAP PO SCH (20:07)
[2019-07-04] MEDS: **NOTE PATIENT COMMENT** MISC XX SCH (21:00)
[2019-07-04 22:00] VITALS: BP 148/77
[2019-07-05] MEDS: cefTRIAXone SOD 1 GM in D5W MINI-BAG PLUS 50 ML IV SCH (05:50)
[2019-07-05 06:00] VITALS: BP 148/79
[2019-07-05] MEDS ORDERED: cefTRIAXone SOD 1 GM VIAL (J0696) IV SCH (06:00)
[2019-07-05 06:19] LABS: HEMATOCRIT 38.9 % (42.0-52.0); HEMOGLOBIN 12.4 g/dl (13.5-17.5); MEAN CORPUSCULAR HEMOGLOBIN 32.3 pg (27.0-33.0); MEAN CORPUSCULAR HGB CONC 31.9 g/dl (32.0-36.5); MEAN CORPUSCULAR VOLUME 101.3 fl (80.0-96.0); PLATELET COUNT, AUTOMATED 114 10^3/uL (150-450); RED BLOOD COUNT 3.84 10^6/uL (4.30-6.10); WHITE BLOOD COUNT 7.2 10^3/uL (4.0-10.0)
[2019-07-05 06:32] LABS: CALCIUM LEVEL 8.4 MG/DL (8.8-10.2); CREATININE FOR GFR 1.45 MG/DL (0.70-1.30); GLOMERULAR FILTRATION RATE 49.1 (>35); MAGNESIUM LEVEL 1.8 MG/DL (1.8-2.4); PHOSPHORUS LEVEL 2.6 MG/DL (2.5-4.9); POTASSIUM SERUM 4.5 MEQ/L (3.5-5.1)
[2019-07-05] MEDS: ENOXAPARIN 100MG/1ML SYRINGE (J1650) SC SCH (08:00)
[2019-07-05] MEDS: NITROGLYCERIN 0.2 MG/HR PATCH TD SCH (08:52)
[2019-07-05] MEDS: quiNINE SULFATE 324 MG CAP (QUALAQUIN) PO SCH (08:53)
[2019-07-05 08:54] VITALS: BP 168/89
[2019-07-05] MEDS: CelecoXIB (CeleBREX) 100 MG CAP PO SCH (08:54)
[2019-07-05] MEDS: ATENOLOL 25 MG TAB PO SCH (08:54)
[2019-07-05] MEDS: ASPIRIN 81 MG ENTERIC TAB PO SCH (08:54)
[2019-07-05] MEDS: FINASTERIDE 5 MG TAB PO SCH (08:54)
[2019-07-05] MEDS: ATORVASTATIN 20 MG TAB PO SCH (08:54)
[2019-07-05 10:00] VITALS: BP 140/79
[2019-07-05] MEDS ORDERED: APIXABAN 5 MG TAB (ELIQUIS) PO SCH (11:00)
[2019-07-05] MEDS ORDERED: ELIQ5TAB PO (13:16)
[2019-07-05 14:00] VITALS: BP 164/78
[2019-07-05] MEDS ORDERED: LEVA1TAB2 PO (14:26)
--- NOTE | 2019-07-05 14:30 | DS.PDOC ---
Discharge Summary General Date of Admission Jul 03, 2019 at 05:28 Date of Discharge 07/05/2019 Attending Physician: NAHUM JAIME MD Discharge Summary PROCEDURES PERFORMED DURING STAY: None. ADMITTING DIAGNOSES: 1. Bilateral lower extremity DVT, UTI. DISCHARGE DIAGNOSES: 1. Bilateral lower extremity DVT, UTI. COMPLICATIONS/CHIEF COMPLAINT: Acute Flank Pain, Uti. HISTORY OF PRESENT ILLNESS: 84 old male with past medical history of bladder cancer, CKD was admitted for bilateral DVT and UTI. He has been treated with Lovenox. Will switch to Eliquis prior to discharge, no prior authorization needed by insurance. Urine cultures grew Enterobacter sensitive to Levaquin, which patient will be discharged on to complete a seven-day course. PE was not ruled out due to poor renal function, patient hemodynamically stable, concern is minimal for a large central PE; patient may have small PE, but will not adjust treatment regimen. Patient has follow-up with flower picker outpatient for further workup; patient understands and agrees with discharge planning. HOSPITAL COURSE: As above. DISCHARGE MEDICATIONS: Please see below. ALLERGIES: Please see below. PHYSICAL EXAMINATION: VITAL SIGNS: Please see below. GENERAL: No distress HEENT: Normocephalic, atraumatic, moist mucous membranes NECK: Supple CARDIOVASCULAR EXAMINATION: S1, S2, no murmurs RESPIRATORY EXAMINATION: Clear to auscultation, no wheezing ABDOMINAL EXAMINATION: Soft, nontender, nondistended, positive bowel sounds EXTREMITIES: Range of motion intact, trace pitting edema SKIN: No rash NEUROLOGICAL EXAMINATION: Alert and oriented 3, no focal deficits PSYCHIATRIC EXAMINATION: Calm and cooperative LABORATORY DATA: Please see below. IMAGING: Lower extremity Doppler with bilateral popliteal DVTs PROGNOSIS: Fair ACTIVITY: As tolerated. DIET: Renal DISCHARGE PLAN: Patient is to follow with flower picker and PCP in 1-2 weeks DISPOSITION: . Home DISCHARGE INSTRUCTIONS: 1. As above. DISCHARGE CONDITION: Stable. TIME SPENT ON DISCHARGE: Greater than 37 minutes. Vital Signs/I&Os Vital Signs Date Time Temp Pulse Resp B/P (MAP) Pulse Ox O2 Delivery O2 Flow Rate FiO2 07/05/19 14:00 97.6 71 20 164/78 (106) 94 Room Air I&O- Last 24 Hours up to 6 AM 07/05/19 06:00 Intake Total 1630 ml Output Total 425 ml Balance 1205 ml Laboratory Data Labs 24H Laboratory Tests 2 07/05/19 05:37: Nucleated Red Blood Cells % (auto) 0.0, Anion Gap 7L, Glomerular Filtration Rate 49.1, Calcium Level 8.4L, Phosphorus Level 2.6, Magnesium Level 1.8 CBC/BMP Laboratory Tests 07/05/19 05:37 Microbiology Microbiology 07/03/19 Urine Culture - Final, Complete Enterobacter Cloacae Complex Enterobacter Cloacae Complex#2 Discharge Medications Scheduled Apixaban (Eliquis) 5 Mg Tablet, 5 MG PO BID 10 mg BID for 7 days followed by 5 mg BID. Aspirin (Aspir 81) 81 Mg Tab, 81 MG PO DAILY, (Reported) Atenolol (Atenolol) 25 Mg Tab, 25 MG PO DAILY, (Reported) Atorvastatin Calcium (Lipitor) 20 Mg Tab, 20 MG PO DAILY, (Reported) Celecoxib (Celebrex) 200 Mg Cap, 200 MG PO Q2D, (Reported) Ergocalciferol (Vitamin D2) (Vitamin D2) 2,000 Unit Tablet, 2,000 UNIT PO Q2D, (Reported) Finasteride (Finasteride) 5 Mg Tablet, 5 MG PO DAILY, (Reported) Multivitamin (Multivitamins) 1 Each Capsule, 1 CAP PO DAILY, (Reported) Nitroglycerin (Nitroglycerin Patch) 0.2 Mg/Hr Patch.td24, 0.2 MG TD DAILY, (Reported) [place]-3 Fatty Acids/Fish Oil (Fish Oil 1,000 mg Capsule) 1,000 Mg Cap, 1,000 MG PO DAILY, (Reported) Quinine Sulfate (Quinine Sulfate) 324 Mg Capsule, 324 MG PO BID, (Reported) Sulfamethoxazole/Trimethoprim (Sulfamethoxazole-Tmp Ds Tablet) 1 Each Tablet, 1 TAB PO BID, (Reported) Tamsulosin HCl (Flomax) 0.4 Mg Capsule, 0.4 MG PO QHS, (Reported) Allergies Coded Allergies: cyclobenzaprine (Verified Allergy, Unknown, lip swelling, 07/03/19) iodine (Verified Allergy, Unknown, rash, 07/03/19) metaxalone (Verified Allergy, Unknown, lip swelling, 07/03/19) methocarbamol (Verified Allergy, Unknown, lip swelling, 07/03/19) Shrimp (Verified Adverse Reaction, Mild, vomiting, 07/03/19) amoxicillin (Verified Adverse Reaction, Mild, loss of appetite, 07/03/19) NAHUM JAIME MD Jul 05, 2019 14:30
== END 2019-07-05 15:00 | disposition home or self-care (01) | DRG 299 ==
LOC: M ED 02:23 → M ED INP 05:28 → M MSPAV 08:13
PROVIDERS: ADMIT Internal Medicine; ATTEND Internal Medicine
DX: I82.433 Acute embolism and thrombosis of popliteal vein, bilateral (principal); I26.99 Other pulmonary embolism without acute cor pulmonale; N39.0 Urinary tract infection, site not specified; N12 Tubulo-interstitial nephritis, not specified as acute or chronic; Z85.51 Personal history of malignant neoplasm of bladder; B95.2 Enterococcus as the cause of diseases classified elsewhere; R25.1 Tremor, unspecified; I25.10 Atherosclerotic heart disease of native coronary artery without angina pectoris; Z98.61 Coronary angioplasty status; E78.5 Hyperlipidemia, unspecified; N18.3 Chronic kidney disease, stage 3 (moderate); R73.03 Prediabetes; E55.9 Vitamin D deficiency, unspecified; M19.90 Unspecified osteoarthritis, unspecified site; Z98.1 Arthrodesis status; Z90.49 Acquired absence of other specified parts of digestive tract; Z98.41 Cataract extraction status, right eye; Z98.42 Cataract extraction status, left eye; Z86.010 Personal history of colon polyps; Z87.891 Personal history of nicotine dependence; R79.1 Abnormal coagulation profile; D63.1 Anemia in chronic kidney disease; Z79.82 Long term (current) use of aspirin; Z79.01 Long term (current) use of anticoagulants; Z79.899 Other long term (current) drug therapy; Z88.1 Allergy status to other antibiotic agents; Z88.8 Allergy status to other drugs, medicaments and biological substances; Z91.013 Allergy to seafood; K57.90 Diverticulosis of intestine, part unspecified, without perforation or abscess without bleeding

== ENCOUNTER → 2020-01-18 | Outpatient (REF) | payer MEDICARE ==
[~2020-01-18] MED LIST changes: -ASPI81TA85 PO; +ASPI81TA86 PO; +ELIQ5TAB PO; +FINA5TAB2 PO; +LEVA1TAB2 PO; +NITR0.2D5 TD; +SULF1TAB93 PO
[2020-01-18 12:54] LABS: HEMATOCRIT 44.7 % (42.0-52.0); HEMOGLOBIN 14.9 g/dl (13.5-17.5); MEAN CORPUSCULAR HEMOGLOBIN 31.6 pg (27.0-33.0); MEAN CORPUSCULAR HGB CONC 33.3 g/dl (32.0-36.5); MEAN CORPUSCULAR VOLUME 94.9 fl (80.0-96.0); PLATELET COUNT, AUTOMATED 167 10^3/uL (150-450); RED BLOOD COUNT 4.71 10^6/uL (4.30-6.10); WHITE BLOOD COUNT 5.9 10^3/uL (4.0-10.0)
[2020-01-18 13:17] LABS: ALBUMIN 3.6 GM/DL (3.2-5.2); BILIRUBIN,TOTAL 0.8 MG/DL (0.2-1.0); CALCIUM LEVEL 8.7 MG/DL (8.8-10.2); CHOLESTEROL RISK RATIO 3.238 (<5); CREATININE FOR GFR 1.58 MG/DL (0.70-1.30); GLOMERULAR FILTRATION RATE 44.5 (>35); POTASSIUM SERUM 4.7 MEQ/L (3.5-5.1); TOTAL PROTEIN 6.1 GM/DL (6.4-8.2)
[2020-01-18 13:24] LABS: PTH INTACT 96.4 PG/ML (18.5-88.0)
== END ==
LOC: M SFHCPLAZ 11:21
PROVIDERS: ATTEND Internal Medicine
DX: N18.3 Chronic kidney disease, stage 3 (moderate) (principal); E78.00 Pure hypercholesterolemia, unspecified; Z86.010 Personal history of colon polyps
CPT/HCPCS: 36415; 80053; 80061; 83970; 85027; G0463

== ENCOUNTER → 2020-02-03 | Outpatient (REF) | payer MEDICARE ==
[~2020-02-03] MED LIST changes: +ASPI81TA85 PO; -ASPI81TA86 PO
== END ==
LOC: M SMT 18:07
PROVIDERS: ATTEND Urology
DX: C67.9 Malignant neoplasm of bladder, unspecified (principal)

== ENCOUNTER → 2020-05-08 | Outpatient (REF) | payer MEDICARE ==
[~2020-05-08] MED LIST changes: -ASPI81TA85 PO; +ASPI81TA86 PO
== END ==
LOC: M LAB REF 17:06
PROVIDERS: ATTEND Urology
DX: C67.9 Malignant neoplasm of bladder, unspecified (principal)

== ENCOUNTER → 2020-06-05 | Outpatient (CLI) | payer MEDICARE ==
[2020-06-05 12:53] LABS: CREATININE FOR GFR 1.78 MG/DL (0.70-1.30); GLOMERULAR FILTRATION RATE 38.7 (>35); POTASSIUM SERUM 4.9 MEQ/L (3.5-5.1)
== END ==
LOC: M PLALAB 08:14
PROVIDERS: ATTEND Urology
DX: C67.9 Malignant neoplasm of bladder, unspecified (principal)

== ENCOUNTER → 2020-06-06 | Outpatient (CLI) | payer MEDICARE ==
--- NOTE | 2020-06-13 14:37 | REP ---
CT OF THE ABDOMEN AND PELVIS WITHOUT IV OR ORAL CONTRAST: HISTORY: Bladder cancer. COMPARISON: CT abdomen and pelvis from 07/03/19. FINDINGS: Preliminary digital ceo & founder radiograph demonstrates a normal bowel gas pattern. The lung bases are essentially clear. There is no evidence of pleural effusion or upper abdominal ascites. Vascular calcification is seen in the aorta and its branches, including the splenic artery, as before. No focal hepatic or splenic lesion is seen. The gallbladder is unremarkable. No abnormality is noted in the pancreas. Normal adrenal glands are present bilaterally. There are bilateral renal cortical cysts, the largest of which is a parapelvic cyst in the mid to lower pole of the left kidney measuring 6.3 cm in greatest diameter. These are unchanged. There is no evidence of hydronephrosis on either side. The ureters are not enlarged. No focal bladder mass lesion is seen. The prostate is mildly prominent, as before. The seminal vesicles are unremarkable. There is moderate left colonic diverticulosis without CT evidence of diverticulitis. The small bowel loops are unremarkable. A normal appendix is seen. No abdominal wall defect is seen. No bony destructive lesion. IMPRESSION: No evidence of mass or adenopathy. Bilateral renal cortical cysts. Left colonic diverticulosis. No evidence of hydronephrosis. MTDD
== END ==
LOC: M RAD 09:53
PROVIDERS: ATTEND Urology
DX: N28.1 Cyst of kidney, acquired (principal); C67.9 Malignant neoplasm of bladder, unspecified

== ENCOUNTER → 2020-06-14 | Outpatient (REF) | payer MEDICARE ==
[2020-06-14 12:45] LABS: HEMATOCRIT 46.9 % (42.0-52.0); HEMOGLOBIN 15.4 g/dl (13.5-17.5); MEAN CORPUSCULAR HEMOGLOBIN 31.4 pg (27.0-33.0); MEAN CORPUSCULAR HGB CONC 32.8 g/dl (32.0-36.5); MEAN CORPUSCULAR VOLUME 95.5 fl (80.0-96.0); PLATELET COUNT, AUTOMATED 183 10^3/uL (150-450); RED BLOOD COUNT 4.91 10^6/uL (4.30-6.10); WHITE BLOOD COUNT 6.2 10^3/uL (4.0-10.0)
[2020-06-14 12:59] LABS: ALBUMIN 3.6 GM/DL (3.2-5.2); BILIRUBIN,TOTAL 0.8 MG/DL (0.2-1.0); CALCIUM LEVEL 8.6 MG/DL (8.8-10.2); CREATININE FOR GFR 1.65 MG/DL (0.70-1.30); GLOMERULAR FILTRATION RATE 42.2 (>35); PHOSPHORUS LEVEL 3.1 MG/DL (2.5-4.9); POTASSIUM SERUM 4.6 MEQ/L (3.5-5.1); TOTAL PROTEIN 6.3 GM/DL (6.4-8.2)
[2020-06-14 13:08] LABS: PTH INTACT 92.9 PG/ML (18.5-88.0); TOTAL 25(OH) VITAMIN D 43.4 NG/ML (30.0-100.0)
[2020-06-14 13:52] LABS: HEMOGLOBIN A1c 5.4 %
== END ==
LOC: M SFHCPLAZ 10:16
PROVIDERS: ATTEND Internal Medicine
DX: N18.30 Chronic kidney disease, stage 3 unspecified (principal); R73.01 Impaired fasting glucose; E55.9 Vitamin D deficiency, unspecified; Z23 Encounter for immunization
CPT/HCPCS: 36415; 80053; 82306; 83036; 83970; 84100; 85027; 90682; G0008

== ENCOUNTER → 2021-01-15 | Outpatient (REF) | payer MEDICARE ==
[~2021-01-15] MED LIST changes: +BACTDSTA PO; -SULF1TAB93 PO
== END ==
LOC: M SMT 13:13
PROVIDERS: ATTEND Urology
DX: C67.9 Malignant neoplasm of bladder, unspecified (principal)

== ENCOUNTER → 2021-01-16 | Outpatient (REF) | payer MEDICARE ==
[2021-01-16 13:41] LABS: BASO % 0.6 % (0.0-1.0); EOS # 0.1 10^3/uL (0.0-0.5); EOS % 1.7 % (0.0-3.0); LYMPH # 1.2 10^3/uL (1.5-5.0); LYMPH % 18.9 % (24.0-44.0); MEAN CORPUSCULAR HEMOGLOBIN 31.5 pg (27.0-33.0); MEAN CORPUSCULAR HGB CONC 32.6 g/dl (32.0-36.5); MEAN CORPUSCULAR VOLUME 96.6 fl (80.0-96.0); MONO # 0.6 10^3/uL (0.0-0.8); MONO % 8.8 % (2.0-8.0); NEUTROPHILS # 4.6 10^3/uL (1.5-8.5); NEUTROPHILS % 69.7 % (36.0-66.0); PLATELET COUNT, AUTOMATED 181 10^3/uL (150-450); RED BLOOD COUNT 4.76 10^6/uL (4.30-6.10); WHITE BLOOD COUNT 6.6 10^3/uL (4.0-10.0)
[2021-01-16 14:27] LABS: ALBUMIN 3.7 GM/DL (3.2-5.2); BILIRUBIN,TOTAL 0.8 MG/DL (0.2-1.0); CHOLESTEROL RISK RATIO 3.187 (<5); CREATININE FOR GFR 1.57 MG/DL (0.70-1.30); GLOMERULAR FILTRATION RATE 44.7 (>35); POTASSIUM SERUM 4.7 MEQ/L (3.5-5.1); PTH INTACT 90.1 PG/ML (18.5-88.0); TOTAL PROTEIN 6.2 GM/DL (6.4-8.2)
== END ==
LOC: M SFHCPLAZ 11:09
PROVIDERS: ATTEND Internal Medicine
DX: C67.9 Malignant neoplasm of bladder, unspecified (principal); E78.00 Pure hypercholesterolemia, unspecified; N18.30 Chronic kidney disease, stage 3 unspecified

== ENCOUNTER → 2021-01-16 | Outpatient (CLI) | payer MEDICARE ==
--- NOTE | 2021-01-16 12:54 | REPPI ---
INDICATION: BLADDER CA, PRE OP COMPARISON: 07/03/2019. TECHNIQUE: PA/Lateral FINDINGS: Lungs: There is no acute infiltrate. There is stable bibasilar fibro atelectatic change. Heart: Normal in size. Mediastinum: There is mild calcification and tortuosity of the thoracic aorta. The mediastinal silhouette is unchanged. Pleural angles: Unremarkable.. Bones and soft tissues: Unremarkable. IMPRESSION: No acute pulmonary disease. <Electronically signed by Jama Cardenas > 01/16/21 [id number]
== END ==
LOC: M PLAIMG 11:43
PROVIDERS: ATTEND Urology
DX: Z01.818 Encounter for other preprocedural examination (principal); C67.9 Malignant neoplasm of bladder, unspecified; E78.00 Pure hypercholesterolemia, unspecified; N18.30 Chronic kidney disease, stage 3 unspecified; Z23 Encounter for immunization
CPT/HCPCS: 36415; 71046; 80053; 80061; 83735; 83970; 85025; 90471; 90715; 93005; G0463

== ENCOUNTER → 2021-02-09 | Outpatient (REF) | payer MEDICARE ==
[~2021-02-09] MED LIST changes: +CARB25TA9; +D31000TA2 PO; +VITMTA PO
== END ==
LOC: M SMT 09:51
PROVIDERS: ATTEND Urology
DX: Z01.818 Encounter for other preprocedural examination (principal); C67.9 Malignant neoplasm of bladder, unspecified; N39.0 Urinary tract infection, site not specified

== ENCOUNTER → 2021-02-11 | Outpatient (CLI) | payer MEDICARE | LOC: M LABSMTC 09:40 | PROVIDERS: ATTEND Anesthesiology | DX: Z01.818 Encounter for other preprocedural examination (principal); Z11.52 Encounter for screening for COVID-19 ==

== ENCOUNTER 2021-02-16 12:15 | Day surgery (SDC) | payer MEDICARE ==
[~2021-02-16] VITALS: Ht 177.8 cm; Wt 90.6 kg
[~2021-02-16 12:15] MED LIST changes: +LR 1,000 ML IV ONE; +ceFAZolin SOD 2 GM in IV 1 EA IV ONE
[2021-02-16] MEDS ORDERED: ROCURONIUM BROMIDE 50 MG/5 ML VIAL As Ordered ONE (12:42)
[2021-02-16] MEDS ORDERED: SUGAMMADEX SODIUM 500 MG/5 ML VIAL (BRIDION) As Ordered ONE (12:42)
[2021-02-16] MEDS ORDERED: dexameTHASONE 4 MG/ML 1ML VIAL (J1100 PER 1MG) As Ordered ONE (12:42)
[2021-02-16] MEDS ORDERED: LIDOCAINE 2% 100MG/5ML SDV (FOR ANES.) As Ordered ONE (12:42)
[2021-02-16] MEDS ORDERED: fentaNYL 100 MCG/2 ML INJECTION (J3010) As Ordered ONE ×2 (12:42→17:15)
[2021-02-16] MEDS ORDERED: MIDAZOLAM INJ 2MG/2ML VIAL (J2250 PER 1MG) As Ordered ONE (12:42)
[2021-02-16] MEDS ORDERED: ONDANSETRON 4MG/2ML VIAL As Ordered ONE (12:42)
[2021-02-16] MEDS ORDERED: ePHEDrine SULFATE 25 MG/5 ML(5MG/ML) SYRINGE As Ordered ONE (12:43)
[2021-02-16] MEDS ORDERED: ACETAMINOPHEN 1000MG 100ML IV BTL (OFIRMEV) (J0131 PER 10MG) As Ordered ONE (12:43)
[2021-02-16] MEDS ORDERED: propofoL 200 MG/20 ML VIAL As Ordered ONE (12:43)
[2021-02-16] MEDS ORDERED: PHENYLephrine 500MCG 5ML (100MCG/ML) SYRINGE As Ordered ONE (12:43)
[2021-02-16 13:22] LABS: INR 1.01; PARTIAL THROMBOPLASTIN TIME 28.7 SECONDS (24.2-38.5); PROTHROMBIN TIME 13.5 SECONDS (12.5-14.3)
[2021-02-16] MEDS: fentaNYL 100 MCG/2 ML INJECTION (J3010) IV PRN ×4 (17:17→17:56)
[2021-02-16] MEDS ORDERED: LR 1,000 ML IV SCH (17:20)
[2021-02-16] MEDS ORDERED: ONDANSETRON 4MG/2ML VIAL IV PRN (17:20)
[2021-02-16] MEDS ORDERED: oxyCODONE 5MG TAB PO PRN (17:20)
[2021-02-16] MEDS ORDERED: ACETAMINOPHEN TAB 650MG DOSE (2X325MG) PO PRN (17:25)
[2021-02-16] MEDS ORDERED: KETOROLAC 30 MG/ML 1ML VIAL IV ONE (17:35)
[2021-02-16 18:50] VITALS: BP 174/81
--- NOTE | 2021-02-17 00:13 | RO ---
OPERATIVE NOTE DATE OF OPERATION: 02/16/2021 PREOPERATIVE DIAGNOSIS: Bladder cancer. POSTOPERATIVE DIAGNOSIS: Bladder cancer. PROCEDURE: Cystoscopy, transurethral resection of bladder tumors (between 2 and 5 cm). SURGEON: Vipin Hernandez MD TOBACCO EDUCATOR: None. ANESTHESIA: General. OPERATIVE INDICATIONS: This is an 85-year-old male with a history of bladder cancer. He was found to have recurrent bladder tumors on office cystoscopy. He was brought to the operating room today for treatment. DESCRIPTION OF PROCEDURE: The patient was brought to the operating room and general anesthesia was induced. Prophylactic antibiotics were infused. He was placed in the dorsal lithotomy position and prepped and draped in usual sterile fashion. At this point, resectoscope was inserted in urethral meatus and advanced into the bladder using visual obturator. The bladder was thoroughly examined. Of note; there were a few small papillary tumors on the right lateral wall just above the level of the trigone. There were also several red erythematous patches throughout the bladder, concerning for carcinoma in situ. The papillary tumors on the right lateral wall were resected using a loop. The base of resection and was cauterized until there was good hemostasis. All the red patches in the bladder were fulgurated using coagulation current. Once satisfied, any visible tumors or areas suspicious for tumors were removed or fulgurated. The resectoscope was removed. At this point, an 18 [place] Mary catheter was inserted into the bladder and the balloon was filled with 10 mL of sterile water. The catheter was connected to gravity drainage. This marked the conclusion of the procedure. The patient was taken out of the dorsal lithotomy position, awakened from anesthesia and transferred to recovery room in stable condition. ESTIMATED BLOOD LOSS: 10 mL. COMPLICATIONS: None. SPECIMEN: Bladder tumor. PLAN: The patient will follow up in urology clinic in approximately one week for catheter removal and to discuss pathology results. MERLE
== END 2021-02-16 18:55 | disposition home or self-care (01) ==
LOC: M SDC 12:15
PROVIDERS: ATTEND Urology
DX: C67.9 Malignant neoplasm of bladder, unspecified (principal); E55.9 Vitamin D deficiency, unspecified; E78.00 Pure hypercholesterolemia, unspecified; I12.9 Hypertensive chronic kidney disease with stage 1 through stage 4 chronic kidney disease, or unspecified chronic kidney disease; I25.10 Atherosclerotic heart disease of native coronary artery without angina pectoris; J45.909 Unspecified asthma, uncomplicated; L40.9 Psoriasis, unspecified; N18.30 Chronic kidney disease, stage 3 unspecified; N28.1 Cyst of kidney, acquired; N40.0 Benign prostatic hyperplasia without lower urinary tract symptoms; R25.2 Cramp and spasm; R73.01 Impaired fasting glucose; Z79.01 Long term (current) use of anticoagulants; Z79.899 Other long term (current) drug therapy; Z86.010 Personal history of colon polyps; Z86.718 Personal history of other venous thrombosis and embolism; Z87.891 Personal history of nicotine dependence; Z88.1 Allergy status to other antibiotic agents; Z88.8 Allergy status to other drugs, medicaments and biological substances; Z91.013 Allergy to seafood; Z91.048 Other nonmedicinal substance allergy status; Z96.1 Presence of intraocular lens; Z98.41 Cataract extraction status, right eye; Z98.42 Cataract extraction status, left eye
CPT/HCPCS: 36415; 52235; 85610; 85730; 88305; J0131; J0690; J1100; J1885; J2250; J2370; J2405; J3010

== ENCOUNTER → 2021-03-16 | Outpatient (REF) | payer MEDICARE ==
[~2021-03-16] MED LIST changes: -LR 1,000 ML IV ONE; -ceFAZolin SOD 2 GM in IV 1 EA IV ONE
[2021-03-16 13:18] LABS: APPEARANCE, URINE TURBID (CLEAR); BACTERIA, URINE AUTO NEGATIVE (NEGATIVE); BILIRUBIN, URINE AUTO NEGATIVE (NEGATIVE); BLOOD, URINE BLOOD 3+ (NEGATIVE); COLOR, URINE AMBER (YELLOW); GLUCOSE, URINE (UA) AUTO NEGATIVE (NEGATIVE); KETONE, URINE AUTO NEGATIVE (NEGATIVE); LEUKOCYTE ESTERASE, URINE AUTO 3+ (NEGATIVE); NITRITE, URINE AUTO NEGATIVE (NEGATIVE); PROTEIN, URINE AUTO 2+ mg/dL (NEGATIVE); RBC, URINE AUTO TNTC /HPF (0-3); SPECIFIC GRAVITY URINE AUTO 1.013 (1.002-1.035); SQUAMOUS EPITHELIAL CELL UR AU 0 /HPF (0-6); UROBILINOGEN, URINE AUTO 0.2 mg/dL (0.0-2.0); WBC, URINE AUTO TNTC /HPF (0-3)
== END ==
LOC: M SMT 12:53
PROVIDERS: ATTEND Urology
DX: R30.0 Dysuria (principal)

== ENCOUNTER → 2021-06-08 | Outpatient (CLI) | payer MEDICARE ==
[2021-06-08 11:37] LABS: ALBUMIN 3.5 GM/DL (3.2-5.2); CREATININE FOR GFR 1.74 MG/DL (0.70-1.30); GLOMERULAR FILTRATION RATE 39.6 (>35); MAGNESIUM LEVEL 1.9 MG/DL (1.8-2.4); POTASSIUM SERUM 4.8 MEQ/L (3.5-5.1); TOTAL PROTEIN 6.3 GM/DL (6.4-8.2)
[2021-06-08 11:44] LABS: PTH INTACT 80.9 PG/ML (18.5-88.0)
== END ==
LOC: M PLALAB 08:10
PROVIDERS: ATTEND Internal Medicine
DX: Z11.59 Encounter for screening for other viral diseases (principal)
CPT/HCPCS: 36415; 80053; 83735; 83970; G0472

== ENCOUNTER → 2021-06-11 | Outpatient (REF) | payer MEDICARE | LOC: M SMT 11:38 | PROVIDERS: ATTEND Urology | DX: C67.9 Malignant neoplasm of bladder, unspecified (principal) ==

== ENCOUNTER 2021-06-12 00:09 | Emergency (ER) | payer MEDICARE ==
[2021-06-12 00:11] VITALS: BP 168/79
== END 2021-06-12 02:55 | disposition home or self-care (01) ==
LOC: M ED 00:09
DX: R33.9 Retention of urine, unspecified (principal); Z85.51 Personal history of malignant neoplasm of bladder; Z79.01 Long term (current) use of anticoagulants; Z79.899 Other long term (current) drug therapy; Z88.0 Allergy status to penicillin; Z88.1 Allergy status to other antibiotic agents; Z91.89 Other specified personal risk factors, not elsewhere classified; Z88.8 Allergy status to other drugs, medicaments and biological substances; Z91.013 Allergy to seafood

== ENCOUNTER → 2022-01-01 | Outpatient (CLI) | payer MEDICARE ==
[~2022-01-01] MED LIST changes: -D31000TA2 PO; +VITA100093 PO
[2022-01-01 17:29] LABS: BASO # 0.1 10^3/uL (0.0-0.2); BASO % 0.9 % (0.0-1.0); EOS # 0.2 10^3/uL (0.0-0.5); EOS % 2.7 % (0.0-3.0); HEMATOCRIT 45.6 % (42.0-52.0); HEMOGLOBIN 15.1 g/dl (13.5-17.5); LYMPH # 1.4 10^3/uL (1.5-5.0); LYMPH % 20.8 % (24.0-44.0); MEAN CORPUSCULAR HEMOGLOBIN 32.5 pg (27.0-33.0); MEAN CORPUSCULAR HGB CONC 33.1 g/dl (32.0-36.5); MEAN CORPUSCULAR VOLUME 98.1 fl (80.0-96.0); MONO # 0.7 10^3/uL (0.0-0.8); MONO % 10.2 % (2.0-8.0); NEUTROPHILS # 4.4 10^3/uL (1.5-8.5); NEUTROPHILS % 65.1 % (36.0-66.0); PLATELET COUNT, AUTOMATED 171 10^3/uL (150-450); RED BLOOD COUNT 4.65 10^6/uL (4.30-6.10); WHITE BLOOD COUNT 6.8 10^3/uL (4.0-10.0)
[2022-01-01 17:48] LABS: ALBUMIN 3.9 GM/DL (3.2-5.2); BILIRUBIN,TOTAL 0.8 MG/DL (0.2-1.0); CALCIUM LEVEL 9.4 MG/DL (8.8-10.2); CHOLESTEROL RISK RATIO 3.02 (<5); CREATININE FOR GFR 1.71 MG/DL (0.70-1.30); GLOMERULAR FILTRATION RATE 40.4 (>35); MAGNESIUM LEVEL 2.1 MG/DL (1.8-2.4); POTASSIUM SERUM 4.6 MEQ/L (3.5-5.1); TOTAL PROTEIN 6.6 GM/DL (6.4-8.2)
[2022-01-01 17:58] LABS: PTH INTACT 105.3 PG/ML (18.5-88.0)
== END ==
LOC: M PLALAB 15:55
PROVIDERS: ATTEND Internal Medicine
DX: E78.00 Pure hypercholesterolemia, unspecified (principal)

== ENCOUNTER → 2022-02-11 | Outpatient (REF) | payer MEDICARE | LOC: M SMT 13:04 | PROVIDERS: ATTEND Urology | DX: C67.9 Malignant neoplasm of bladder, unspecified (principal) ==

== ENCOUNTER → 2022-04-04 | Outpatient (REF) | payer MEDICARE ==
[2022-04-04 18:01] LABS: APPEARANCE, URINE MANUAL TURBID (CLEAR); COLOR, URINE MANUAL BROWN (YELLOW)
[2022-04-04 19:27] LABS: BILIRUBIN, URINE MANUAL NEGATIVE (NEGATIVE); BLOOD URINE MANUAL POSITIVE (NEGATIVE); GLUCOSE, URINE (UA) MANUAL NEGATIVE (NEGATIVE); KETONE, URINE MANUAL NEGATIVE (NEGATIVE); LEUKOCYTE ESTERASE, URINE MAN POSITIVE (NEGATIVE); NITRITE, URINE MANUAL NEGATIVE (NEGATIVE); PROTEIN, URINE MANUAL 3+ mg/dL (NEGATIVE); UROBILINOGEN, URINE MANUAL NORMAL (NORMAL)
[2022-04-04 19:36] LABS: RBC, URINE TNTC /hpf (0-3); RENAL EPITHELIAL CELLS, URINE SMALL AMOUNT /hpf; SQUAMOUS EPITHELIAL CELL URINE LARGE AMOUNT /hpf (SMALL AMT)
[2022-04-04 19:37] LABS: BACTERIA, URINE SMALL AMOUNT
[2022-04-04 19:38] LABS: HYALINE CAST, URINE NONE SEEN /lpf (0-1); MUCUS, URINE SMALL AMOUNT (NEGATIVE); TRANSITIONAL EPI CELLS, URINE SMALL AMOUNT /hpf
== END ==
LOC: M SMT 16:47
PROVIDERS: ATTEND Urology
DX: R31.0 Gross hematuria (principal)

== ENCOUNTER → 2022-04-16 | Outpatient (REF) | payer MEDICARE | LOC: M SMT 16:49 | PROVIDERS: ATTEND Urology | DX: C67.9 Malignant neoplasm of bladder, unspecified (principal) ==

== ENCOUNTER 2022-10-21 18:23 | Observation (INO) | payer MEDICARE ==
[~2022-10-21] VITALS: Ht 180.3 cm; Wt 87.3 kg
[~2022-10-21 18:23] MED LIST changes: -CARB25TA9 PO; -OMEG100011 PO; -TRIA1OI TOP
[2022-10-21] MEDS ORDERED: LIDOCAINE 2% 5ML JELLY UROJET TOP ONE (19:40)
[2022-10-21] MEDS ORDERED: ACETAMINOPHEN 500 MG TAB PO ONE (20:20)
[2022-10-21] MEDS ORDERED: MORPHINE 10 MG/ML 1ML VIAL IM ONE (20:30)
[2022-10-21] MEDS ORDERED: BELLADONNA 16.2mg/OPIUM 60mg 1 EA SUPP PR STA (20:46)
[2022-10-21] MEDS ORDERED: MORPHINE 4 MG/ML 1ML VIAL IV ONE (23:25)
[2022-10-21] MEDS ORDERED: ONDANSETRON 4MG 2ML VIAL As Ordered ONE (23:37)
[2022-10-21] MEDS ORDERED: ONDANSETRON 4MG 2ML VIAL IV ONE (23:40)
[2022-10-21 23:53] LABS: BASO % 0.3 % (0.0-1.0); EOS % 0.2 % (0.0-3.0); HEMOGLOBIN 14.9 g/dl (13.5-17.5); LYMPH # 0.7 10^3/uL (1.5-5.0); LYMPH % 5.2 % (24.0-44.0); MEAN CORPUSCULAR HEMOGLOBIN 32.4 pg (27.0-33.0); MEAN CORPUSCULAR HGB CONC 33.9 g/dl (32.0-36.5); MEAN CORPUSCULAR VOLUME 95.7 fl (80.0-96.0); MONO # 0.9 10^3/uL (0.0-0.8); NEUTROPHILS # 11.6 10^3/uL (1.5-8.5); NEUTROPHILS % 86.8 % (36.0-66.0); PLATELET COUNT, AUTOMATED 156 10^3/uL (150-450); WHITE BLOOD COUNT 13.4 10^3/uL (4.0-10.0)
[2022-10-22] MEDS ORDERED: NS 1,000 ML IV ONE (00:55)
[2022-10-22] MEDS ORDERED: SINEMET 25-100 MG TAB PO SCH ×2 (05:00→10:00)
[2022-10-22 05:10] LABS: RSV AMPLIFICATION NEGATIVE (NEGATIVE)
[2022-10-22] MEDS ORDERED: CARB25TA9 PO (05:10)
[2022-10-22] MEDS ORDERED: OMEG100011 PO (05:10)
[2022-10-22] MEDS ORDERED: TRIA1OI TOP (05:10)
[2022-10-22] MEDS ORDERED: HOME MED LIST COMPLETE! XX SCH (05:15)
[2022-10-22] MEDS ORDERED: NORCO, ANEXSIA 5/325MG TABLET (HYDROcodone/ACETAMINOPHEN) PO PRN (05:20)
[2022-10-22] MEDS ORDERED: NITROGLYCERIN 0.2 MG/HR PATCH TD PRN (05:20)
[2022-10-22] MEDS ORDERED: ACETAMINOPHEN TAB 650MG DOSE (2X325MG) PO PRN (05:20)
[2022-10-22] MEDS ORDERED: NS 500 ML IV ONE (05:20)
[2022-10-22] MEDS ORDERED: NS 1,000 ML IV SCH (05:20)
[2022-10-22] MEDS ORDERED: TRIAMCINOLONE ACET 0.1% OINTMENT 15GM TOP PRN (05:20)
[2022-10-22] MEDS ORDERED: ONDANSETRON 4MG 2ML VIAL IV PRN (05:20)
[2022-10-22 08:31] LABS: HEMATOCRIT 39.5 % (42.0-52.0); HEMOGLOBIN 13.2 g/dl (13.5-17.5)
[2022-10-22 08:45] VITALS: BP 143/77
[2022-10-22 08:50] VITALS: BP 143/77
[2022-10-22] MEDS ORDERED: FINASTERIDE 5MG TAB PO SCH (09:00)
[2022-10-22] MEDS ORDERED: atenoloL 25 MG TAB PO SCH (09:00)
[2022-10-22] MEDS ORDERED: quiNINE SULFATE 324 MG CAP (QUALAQUIN) PO SCH (09:00)
[2022-10-22] MEDS ORDERED: ATORVASTATIN 20 MG TAB PO SCH (09:00)
[2022-10-22 11:17] LABS: C REACTIVE PROTEIN QUANTITATIV 2.6 MG/DL (<1.0)
[2022-10-22 11:27] LABS: BASO % 0.3 % (0.0-1.0); EOS % 0.4 % (0.0-3.0); HEMATOCRIT 38.7 % (42.0-52.0); HEMOGLOBIN 12.9 g/dl (13.5-17.5); LYMPH # 0.7 10^3/uL (1.5-5.0); LYMPH % 7.5 % (24.0-44.0); MEAN CORPUSCULAR HEMOGLOBIN 32.2 pg (27.0-33.0); MEAN CORPUSCULAR HGB CONC 33.3 g/dl (32.0-36.5); MEAN CORPUSCULAR VOLUME 96.5 fl (80.0-96.0); MONO # 0.8 10^3/uL (0.0-0.8); MONO % 8.7 % (2.0-8.0); NEUTROPHILS # 7.9 10^3/uL (1.5-8.5); NEUTROPHILS % 82.7 % (36.0-66.0); PLATELET COUNT, AUTOMATED 134 10^3/uL (150-450); RED BLOOD COUNT 4.01 10^6/uL (4.30-6.10); WHITE BLOOD COUNT 9.6 10^3/uL (4.0-10.0)
[2022-10-22 11:58] LABS: ERYTHROCYTE SEDIMENTATION RATE 1 mm/hr (0-20)
[2022-10-22 12:43] LABS: ALBUMIN 3.1 G/DL (3.2-5.2); BILIRUBIN,TOTAL 1.4 MG/DL (0.3-1.2); CALCIUM LEVEL 8.1 MG/DL (8.3-10.6); CREATININE FOR GFR 1.72 MG/DL (0.70-1.30); GLOMERULAR FILTRATION RATE 40.1 (>35); MAGNESIUM LEVEL 1.7 MG/DL (1.8-2.4); POTASSIUM SERUM 4.8 MMOL/L (3.5-5.1); TOTAL PROTEIN 5.4 G/DL (5.7-8.2)
[2022-10-22 14:00] VITALS: BP 132/84
[2022-10-22 14:11] LABS: HEMATOCRIT 40.5 % (42.0-52.0); HEMOGLOBIN 13.7 g/dl (13.5-17.5)
[2022-10-22] MEDS ORDERED: TAMSULOSIN 0.4 MG CAP PO SCH (21:00)
== END 2022-10-22 15:15 | disposition home or self-care (01) ==
LOC: M ED 18:23 → M ED INP 18:24 → ENRESERV 10-22 08:02 → M MSPAV 10-22 08:36
PROVIDERS: ADMIT Internal Medicine; ATTEND Internal Medicine
DX: R33.9 Retention of urine, unspecified (principal); Z98.890 Other specified postprocedural states; C61 Malignant neoplasm of prostate; R31.0 Gross hematuria; R53.1 Weakness; G20 Parkinson's disease; I10 Essential (primary) hypertension; M62.838 Other muscle spasm; E78.00 Pure hypercholesterolemia, unspecified; M19.90 Unspecified osteoarthritis, unspecified site; R39.89 Other symptoms and signs involving the genitourinary system; I20.9 Angina pectoris, unspecified; Z79.899 Other long term (current) drug therapy; Z88.0 Allergy status to penicillin; Z88.8 Allergy status to other drugs, medicaments and biological substances; Z91.013 Allergy to seafood
CPT/HCPCS: 36415; 51703; 76857; 80047; 80053; 81000; 81015; 83735; 85014; 85018; 85025; 85652; 86140; 86850; 86900; 86901; 87086; 87631; 88108; 96374; 96375; 97161; 97165; 97530; 99285; G0378; J2270; J2405

== ENCOUNTER → 2022-10-21 | Outpatient (REF) | payer MEDICARE ==
[~2022-10-21] MED LIST changes: +CARB25TA9 PO; +OMEG100011 PO; +TRIA1OI TOP
== END ==
LOC: M SMT 10:07
PROVIDERS: ATTEND Urology
DX: C67.9 Malignant neoplasm of bladder, unspecified (principal)

== ENCOUNTER → 2023-01-10 | Outpatient (REF) | payer MEDICARE ==
[~2023-01-10] MED LIST changes: +CARB25TA9 PO; +OMEG100011 PO; +TRIA1OI TOP
[2023-01-10 17:28] LABS: APPEARANCE, URINE MANUAL TURBID (CLEAR); COLOR, URINE MANUAL RED (YELLOW)
[2023-01-10 17:29] LABS: BILIRUBIN, URINE MANUAL NEGATIVE (NEGATIVE); BLOOD URINE MANUAL POSITIVE (NEGATIVE); GLUCOSE, URINE (UA) MANUAL NEGATIVE (NEGATIVE); KETONE, URINE MANUAL NEGATIVE (NEGATIVE); LEUKOCYTE ESTERASE, URINE MAN POSITIVE (NEGATIVE); NITRITE, URINE MANUAL NEGATIVE (NEGATIVE); PROTEIN, URINE MANUAL 3+ mg/dL (NEGATIVE); SPECIFIC GRAVITY,URINE MANUAL 1.015 (1.002-1.035); UROBILINOGEN, URINE MANUAL NORMAL (NORMAL)
[2023-01-10 17:30] LABS: BACTERIA, URINE MOD AMOUNT; RBC, URINE TNTC /hpf (0-3); SQUAMOUS EPITHELIAL CELL URINE NONE SEEN /hpf (SMALL AMT); WBC, URINE 15-20 /hpf (0-3)
[2023-01-10 17:31] LABS: HYALINE CAST, URINE NONE SEEN /lpf (0-1)
== END ==
LOC: M LABSMT 15:37
PROVIDERS: ATTEND Urology
DX: R31.0 Gross hematuria (principal)

== ENCOUNTER → 2023-02-26 | Outpatient (CLI) | payer MEDICARE ==
[2023-02-26 10:48] LABS: HEMATOCRIT 42.4 % (42.0-52.0); HEMOGLOBIN 14.5 g/dl (13.5-17.5); MEAN CORPUSCULAR HGB CONC 34.2 g/dl (32.0-36.5); MEAN CORPUSCULAR VOLUME 96.6 fl (80.0-96.0); PLATELET COUNT, AUTOMATED 178 10^3/uL (150-450); RED BLOOD COUNT 4.39 10^6/uL (4.30-6.10); WHITE BLOOD COUNT 7.1 10^3/uL (4.0-10.0)
[2023-02-26 11:19] LABS: HEMOGLOBIN A1c 5.4 % (4.0-6.0)
[2023-02-26 11:24] LABS: FREE T4 1.18 NG/DL (0.89-1.76); THYROID STIMULATING HORMONE 3.254 uIU/ML (0.55-4.78)
[2023-02-26 11:25] LABS: C REACTIVE PROTEIN QUANTITATIV < 0.40 MG/DL (<1.0)
[2023-02-26 11:26] LABS: ALBUMIN 3.6 G/DL (3.2-5.2); ALKALINE PHOSPHATASE 117 U/L (46-116); ALT/SGPT < 9 U/L (7.0-40); AST/SGOT 16 U/L (<34); BILIRUBIN,TOTAL 0.6 MG/DL (0.3-1.2); BLOOD UREA NITROGEN 27 MG/DL (9-23); CALCIUM LEVEL 8.4 MG/DL (8.3-10.6); CARBON DIOXIDE LEVEL 25 MMOL/L (20-31); CHLORIDE LEVEL 109 MMOL/L (98-107); CHOLESTEROL LEVEL 125 MG/DL (<200); CHOLESTEROL RISK RATIO 2.79 (<5); CREATININE FOR GFR 1.77 MG/DL (0.70-1.30); GLOMERULAR FILTRATION RATE 38.8 (>35); GLUCOSE, FASTING 106 MG/DL (74-106); HDL CHOLESTEROL 44.7 MG/DL (>40); LDL CHOLESTEROL 58.9 MG/DL (<100); NON-HDL-C 80.3 MG/DL; POTASSIUM SERUM 4.9 MMOL/L (3.5-5.1); SODIUM LEVEL 141 MMOL/L (136-145); TRIGLYCERIDES LEVEL 107 MG/DL (<150)
[2023-02-26 11:27] LABS: VITAMIN B12 LEVEL 406 PG/ML (211-911)
[2023-02-26 11:28] LABS: TOTAL 25(OH) VITAMIN D 46.3 NG/ML (20.0-100.0)
== END ==
LOC: M PLALAB 08:08
PROVIDERS: ATTEND Internal Medicine Hematology
DX: E78.00 Pure hypercholesterolemia, unspecified (principal); Z79.899 Other long term (current) drug therapy